=== PATIENT | male | born 1990 | race Caucasian/White ===

== ENCOUNTER 2021-05-12 17:33 | Emergency (ER) | payer MEDICAID, OTHER ==
[~2021-05-12] VITALS: Ht 175.3 cm; Wt 7.7 kg
--- NOTE | 2021-05-12 18:47 | NUR ---
NILDA ([facility] [place]) [phone]. CALL HER IF WE HAVE ANY QUESTIONS.
[2021-05-12] MEDS ORDERED: LORA-269 PO (21:37)
[2021-05-12] MEDS ORDERED: LORazepam 1 MG tablet PO ONE (22:05)
[2021-05-12 22:13] VITALS: BP 130/94
[2021-05-13] MEDS ORDERED: ESCI20TA17 PO (00:12)
== END 2021-05-12 22:15 | disposition home or self-care (01) ==
LOC: ER 17:41
DX: F10.230 Alcohol dependence with withdrawal, uncomplicated (principal); F22 Delusional disorders; J45.909 Unspecified asthma, uncomplicated; F41.9 Anxiety disorder, unspecified; F32.9 Major depressive disorder, single episode, unspecified; F12.90 Cannabis use, unspecified, uncomplicated; Z72.89 Other problems related to lifestyle; Z88.1 Allergy status to other antibiotic agents; Z79.899 Other long term (current) drug therapy; Y90.9 Presence of alcohol in blood, level not specified
CPT/HCPCS: 99283

== ENCOUNTER 2021-05-12 23:06 | Emergency (ER) | payer MEDICAID ==
[~2021-05-12] VITALS: Ht 175.3 cm; Wt 77.3 kg
[~2021-05-12 23:06] MED LIST: LORA-269 PO
--- NOTE | 2021-05-12 23:36 | NUR ---
pt escorted back to bed 26 and changed into green scrubs. pt is agreeable to being here overnight
--- NOTE | 2021-05-13 | NUR ---
The patient is a 30 year old male who was brought to the ER by his family. He was seen in the ER one hour ago and was given referrals for treatment. While driving home with his family he demanded that his family pull the car over and he jumped out and then walked to the nearest market and bought ETOH. He stated that he had done that impulsively and had extremely high anxiety. The patient stated that he is not having suicidal thoughts but then added, "I don't want to live like this" He reports that he has a long hx of ETOH abuse and depression and anxiety. He stated that he typically drinks 24 beers per day or more for the past 8 years. He moved to [facility] several weeks ago from out of [place] and is staying with his parents and is employed at [employer]. He reports he has had at least one previous suicide attempt and approximately 4 psychiatric hospitalizations while living in [place]. He also reports having 3-4 stays in rehabs. He denies hx of DUIs. He reports A/V hallucinations. He reports feeling paranoid. He stated that his anxiety is very high. He described his concentration as "scattered" His affect is flat. His speech is monotone, soft. He reports hx of etoh withdrawals and described seizure like symptoms. States prior dx include ETOH, MDD, and Anxiety. He parents are supportive.
[2021-05-13] MEDS ORDERED: ESCI20TA17 PO (00:12)
--- NOTE | 2021-05-13 00:18 | NUR ---
Attempted to home medications list from the last medications the patient was on which was over one month ago. The list the of medications and doses did not make sense. Discussed with PA to hold off on completing the med list until tomorrow when he might be clearer or his mother able to assist.
[2021-05-13 00:56] LABS: BASOPHILS # (AUTO) 0.1 X10'3 (0-0.2); BASOPHILS % (AUTO) 1.6 % (0-1); HEMATOCRIT 42.8 % (42.0-52.0); HEMOGLOBIN 14.9 g/dl (14.0-17.9); LYMPHOCYTES # (AUTO) 1.6 X10'3 (1.1-4.8); LYMPHOCYTES % (AUTO) 33.1 % (21-51); MEAN CORPUSCULAR HEMOGLOBIN 32.4 PG (27.0-31.0); MEAN CORPUSCULAR HGB CONC 34.9 g/dL (33.0-36.5); MEAN CORPUSCULAR VOLUME 92.9 FL (78-98); MEAN PLATELET VOLUME 7.5 FL (7.4-10.4); MONOCYTES # (AUTO) 0.7 X10'3 (0-0.9); NEUTROPHILS # (AUTO) 2.4 X10'3 (1.8-7.7); NEUTROPHILS % (AUTO) 49.3 % (42-75); PLATELET COUNT 187 X10'3 (140-440); RED CELL DISTRIBUTION WIDTH 13.5 % (11.5-14.5); WHITE BLOOD COUNT 4.8 X10'3 (4.5-11.0)
[2021-05-13 00:58] LABS: ALANINE AMINOTRANSFERASE 22 U/L (12-78); ALBUMIN 3.8 G/DL (3.4-5.0); ALBUMIN/GLOBULIN RATIO 1.4 (1.1-1.5); ALKALINE PHOSPHATASE 70 IU/L (46-116); ANION GAP 12 (8-16); ASPARTATE AMINO TRANSFERASE 28 U/L (10-37); BILIRUBIN,TOTAL 0.6 MG/DL (0.1-1.0); BLOOD UREA NITROGEN 8 MG/DL (7-18); BUN/CREATININE RATIO 10.5 (5.4-32.0); CALCIUM 8.1 MG/DL (8.5-10.1); CHLORIDE 104 MMOL/L (99-107); CREATININE 0.76 MG/DL (0.60-1.10); GLUCOSE 91 MG/DL (70-104); POTASSIUM 3.7 MMOL/L (3.5-5.1); SODIUM 141 MMOL/L (135-145); TOTAL CARBON DIOXIDE 25.4 MMOL/L (24-32); TOTAL PROTEIN 6.6 G/DL (6.4-8.2); eGFR > 90 ML/MIN
[2021-05-13 01:00] LABS: URINE AMPHETAMINE SCREEN NEGATIVE (Neg); URINE BARBITUATE SCREEN NEGATIVE (Neg); URINE BENZODIAZEPINES SCREEN POSITIVE (Neg); URINE CANNABINOID SCREEN NEGATIVE (Neg); URINE COCAINE SCREEN POSITIVE (Neg); URINE METHADONE SCREEN NEGATIVE (Neg); URINE OPIATE SCREEN NEGATIVE (Neg); URINE PHENCYCLIDINE SCREEN NEGATIVE (Neg)
[2021-05-13 01:09] LABS: ETHANOL 0.137 GM/DL (0.0-0.010)
--- NOTE | 2021-05-13 02:08 | NUR ---
PACKET FAXED TO [facility]
--- NOTE | 2021-05-13 03:59 | NUR ---
The patient appears to be asleep
--- NOTE | 2021-05-13 04:59 | NUR ---
The patient appears to be sleeping
[2021-05-13 05:41] VITALS: BP 106/70
[2021-05-13 12:47] LABS: CLARITY,URINE SLIGHTLY CLOUDY (Clear); COLOR,URINE YELLOW (Yellow); GLUCOSE, URINE NEGATIVE (Neg); KETONES,URINE NEGATIVE (Neg); LEUKOCYTE ESTERASE ,URINE NEGATIVE (Neg); NITRITES, URINE NEGATIVE (Neg); OCCULT BLOOD,URINE NEGATIVE (Neg); PH,URINE 5.5 (4.8-8.0); PROTEIN,URINE NEGATIVE (Neg); UROBILINOGEN,URINE 0.2 E.U/dL (0.2-1.0)
[2021-05-13] MEDS ORDERED: chlordiazePOXIDE 25mg capsule PO ONE (12:50)
[2021-05-13 12:56] LABS: UA COLLECTION TYPE NON-SPECIFIED
[2021-05-13 13:08] LABS: BACTERIA,URINE NONE SEEN /HPF (Neg); RBC,URINE 0-2 /HPF (0-2); WBC,URINE NONE SEEN /HPF (0-4)
[2021-05-13 13:09] LABS: MUCUS STRANDS FEW /LPF (Neg); SQUAMOUS EPITHELIAL CELL,UR FEW /LPF (FEW)
[2021-05-13 13:10] LABS: CAL OXALATE CRYSTALS 3+ /HPF (NEGATIVE); SPERM FEW /HPF (NEGATIVE)
--- NOTE | 2021-05-13 14:30 | NUR ---
Patients mom called concerned that patient is being discharged without a perscription for ativan or something to get him through until he can go to [facility] and get medications. Transferred mother of patient to [facility] worker who she wished to speak to about the future plan of care.
== END 2021-05-13 17:59 | disposition home or self-care (01) ==
LOC: ER 23:08
DX: R45.851 Suicidal ideations (principal); Z20.822 Contact with and (suspected) exposure to COVID-19; R45.850 Homicidal ideations; J45.909 Unspecified asthma, uncomplicated; F12.90 Cannabis use, unspecified, uncomplicated; Z72.89 Other problems related to lifestyle; Z88.1 Allergy status to other antibiotic agents; Z79.899 Other long term (current) drug therapy
CPT/HCPCS: 36415; 80053; 80305; 80320; 81001; 84443; 85025; 87426; 99285

== ENCOUNTER 2021-07-20 05:07 | Emergency (ER) | payer MEDICAID ==
[~2021-07-20] VITALS: Ht 175.3 cm; Wt 78.6 kg
--- NOTE | 2021-07-20 06:04 | NUR ---
patient states that he got out of rehab 8 days ago for etoh, relapsed yesterday and has been drinking heavily ever since ( his gf broke up with him).
[2021-07-20 06:25] LABS: URINE AMPHETAMINE SCREEN NEGATIVE (Neg); URINE BARBITUATE SCREEN NEGATIVE (Neg); URINE BENZODIAZEPINES SCREEN POSITIVE (Neg); URINE CANNABINOID SCREEN NEGATIVE (Neg); URINE COCAINE SCREEN NEGATIVE (Neg); URINE METHADONE SCREEN NEGATIVE (Neg); URINE OPIATE SCREEN NEGATIVE (Neg); URINE PHENCYCLIDINE SCREEN NEGATIVE (Neg)
[2021-07-20 06:26] LABS: UA COLLECTION TYPE CLN CATCH MIDSTREAM
[2021-07-20 06:28] LABS: CLARITY,URINE CLEAR (Clear); COLOR,URINE YELLOW (Yellow); GLUCOSE, URINE NEGATIVE (Neg); KETONES,URINE NEGATIVE (Neg); LEUKOCYTE ESTERASE ,URINE NEGATIVE (Neg); NITRITES, URINE NEGATIVE (Neg); OCCULT BLOOD,URINE NEGATIVE (Neg); PROTEIN,URINE NEGATIVE (Neg); UROBILINOGEN,URINE 0.2 E.U/dL (0.2-1.0)
[2021-07-20 06:32] LABS: BASOPHILS # (AUTO) 0.1 X10'3 (0-0.2); BASOPHILS % (AUTO) 1.3 % (0-1); EOSINOPHILS # (AUTO) 0.1 X10'3 (0-0.9); EOSINOPHILS % (AUTO) 1.8 % (0-6); HEMATOCRIT 46.6 % (42.0-52.0); HEMOGLOBIN 15.9 g/dl (14.0-17.9); LYMPHOCYTES # (AUTO) 2.5 X10'3 (1.1-4.8); LYMPHOCYTES % (AUTO) 41.5 % (21-51); MEAN CORPUSCULAR HEMOGLOBIN 32.4 PG (27.0-31.0); MEAN CORPUSCULAR HGB CONC 34.2 g/dL (33.0-36.5); MEAN CORPUSCULAR VOLUME 94.8 FL (78-98); MEAN PLATELET VOLUME 8.5 FL (7.4-10.4); MONOCYTES # (AUTO) 0.9 X10'3 (0-0.9); MONOCYTES % (AUTO) 15.6 % (2-12); NEUTROPHILS # (AUTO) 2.4 X10'3 (1.8-7.7); NEUTROPHILS % (AUTO) 39.8 % (42-75); PLATELET COUNT 263 X10'3 (140-440); RED BLOOD COUNT 4.92 X10'6 (4.70-6.10); RED CELL DISTRIBUTION WIDTH 13.1 % (11.5-14.5)
[2021-07-20 06:34] LABS: ALANINE AMINOTRANSFERASE 46 U/L (12-78); ALBUMIN 4.4 G/DL (3.4-5.0); ALBUMIN/GLOBULIN RATIO 1.4 (1.1-1.5); ALKALINE PHOSPHATASE 82 IU/L (46-116); ANION GAP 8 (8-16); ASPARTATE AMINO TRANSFERASE 36 U/L (10-37); BILIRUBIN,TOTAL 0.2 MG/DL (0.1-1.0); BLOOD UREA NITROGEN 5 MG/DL (7-18); BUN/CREATININE RATIO 5.1 (5.4-32.0); CALCIUM 8.3 MG/DL (8.5-10.1); CHLORIDE 112 MMOL/L (99-107); CREATININE 0.98 MG/DL (0.60-1.10); ETHANOL 0.281 GM/DL (0.0-0.010); GLUCOSE 98 MG/DL (70-104); POTASSIUM 3.7 MMOL/L (3.5-5.1); SODIUM 149 MMOL/L (135-145); TOTAL CARBON DIOXIDE 29.4 MMOL/L (24-32); TOTAL PROTEIN 7.6 G/DL (6.4-8.2); eGFR 89 ML/MIN
[2021-07-20] MEDS ORDERED: OLAN5TAB5 PO (08:33)
[2021-07-20] MEDS ORDERED: ESCI5TAB PO (08:33)
[2021-07-20] MEDS ORDERED: ACAM333T8 PO (08:33)
[2021-07-20] MEDS ORDERED: QUET-1 PO (08:33)
[2021-07-20] MEDS ORDERED: OLANZapine 5mg rapidly disint. tablet PO PRN (08:45)
[2021-07-20] MEDS: ESCITALOPRAM OXALATE 5 MG TABLET PO SCH (09:13)
[2021-07-20 10:17] LABS: TOTAL CELLS COUNTED 100
[2021-07-20 10:24] LABS: PLATELET ESTIMATE NORMAL
--- NOTE | 2021-07-20 10:52 | NUR ---
Patient sleeping on left side. No distress observed. Continue to monitor.
--- NOTE | 2021-07-20 12:35 | NUR ---
Patient continues to sleep. No distress observed. Continue to monitor.
[2021-07-20] MEDS ORDERED: acamprosate DR 333mg Tablet PO SCH (13:00)
--- NOTE | 2021-07-20 13:15 | NUR ---
Patient did not want to wake up for lunch. No distress observed. Continue to monitor.
--- NOTE | 2021-07-20 14:45 | NUR ---
Patient speaking to ZHANNA Martinez. Continue to monitor.
--- NOTE | 2021-07-20 16:10 | NUR ---
Patient sleeping supine. No distress observed. Continue to monitor.
--- NOTE | 2021-07-20 19:20 | NUR ---
Pt is laying in bed asleep rr even and unlabored.
--- NOTE | 2021-07-20 20:33 | NUR ---
Pt laying in bed awake. Pt is med compliant, c/o anxiety prn zyprexa provided.
[2021-07-20] MEDS ORDERED: LORazepam 1 MG tablet PO ONE (20:45)
[2021-07-20] MEDS ORDERED: quetiapine 100mg tablet PO SCH (21:00)
--- NOTE | 2021-07-20 21:05 | NUR ---
pt continues to c/o anxiety, prn ativan provided
--- NOTE | 2021-07-20 21:47 | NUR ---
Pt is laying on his right side, asleep. Appears to be resting confortably RR 14
--- NOTE | 2021-07-21 01:30 | NUR ---
Pt is asleep, snoring. Appears to be resting comfortably
--- NOTE | 2021-07-21 04:59 | NUR ---
Pt is laying on his back sleeping. RR even and unlabored.
--- NOTE | 2021-07-21 06:30 | NUR ---
Received Pt in bed sleeping w/o distress.
[2021-07-21] MEDS: ESCITALOPRAM OXALATE 5 MG TABLET PO SCH (08:56)
--- NOTE | 2021-07-21 09:00 | NUR ---
Pt woke, ate breakfast and took AM med w/o issue. He returned to sleep.
--- NOTE | 2021-07-21 11:00 | NUR ---
Pt talking with [facility] clinician at this time. He remains in bed, calm and cooperative. Pt using phone to facilitate transition to [facility].
--- NOTE | 2021-07-21 14:00 | NUR ---
Pt ate lunch. Pt makes no requests of staff and has been sleeping a lot.
--- NOTE | 2021-07-21 16:45 | NUR ---
Talked with Pt about making arrangements to go home. Pt called parents who will be picking him up.
--- NOTE | 2021-07-21 18:19 | NUR ---
Assumed care of pt. Pt is sitting up in bed eating dinner.
[2021-07-21] MEDS ORDERED: LORazepam 1 MG tablet PO ONE (20:30)
[2021-07-21 20:36] VITALS: BP 119/74
--- NOTE | 2021-07-21 20:39 | NUR ---
Pt denies s/i, left with his parents, states his plan is to f/u with [facility].
== END 2021-07-21 20:39 ==
LOC: ER 05:08
DX: R45.851 Suicidal ideations (principal); F10.239 Alcohol dependence with withdrawal, unspecified; J45.909 Unspecified asthma, uncomplicated; F41.9 Anxiety disorder, unspecified; F32.9 Major depressive disorder, single episode, unspecified; F12.90 Cannabis use, unspecified, uncomplicated; Z59.0 Homelessness; Z72.89 Other problems related to lifestyle; Z88.0 Allergy status to penicillin; Z79.899 Other long term (current) drug therapy; Y90.8 Blood alcohol level of 240 mg/100 ml or more
CPT/HCPCS: 80053; 80305; 80320; 81003; 85007; 85025; 99285

== ENCOUNTER 2021-08-26 20:20 | Emergency (ER) | payer MEDICAID ==
[~2021-08-26] VITALS: Ht 175.3 cm; Wt 79.5 kg
[~2021-08-26 20:20] MED LIST changes: +ACAM333T8 PO; +ESCI5TAB PO; -LORA-269 PO; +OLAN5TAB5 PO; +QUET-1 PO
[2021-08-26] MEDS ORDERED: normal saline 1000ml 1,000 ML IV ONE ×2 (22:20)
[2021-08-26] MEDS ORDERED: GABA300C PO (23:31)
[2021-08-27 00:29] VITALS: BP 109/55
== END 2021-08-27 00:10 | disposition home or self-care (01) ==
LOC: ER 20:21
DX: F10.229 Alcohol dependence with intoxication, unspecified (principal); J45.909 Unspecified asthma, uncomplicated; F41.9 Anxiety disorder, unspecified; F32.9 Major depressive disorder, single episode, unspecified; F12.90 Cannabis use, unspecified, uncomplicated; Z72.89 Other problems related to lifestyle; Z88.1 Allergy status to other antibiotic agents; Z79.899 Other long term (current) drug therapy; Y90.9 Presence of alcohol in blood, level not specified
CPT/HCPCS: 99283; J7030

== ENCOUNTER 2021-08-30 12:18 | Inpatient (IN) | payer MEDICAID ==
[~2021-08-30] VITALS: Ht 175.3 cm; Wt 78.2 kg
[~2021-08-30 12:18] MED LIST changes: +GABA300C PO
[2021-08-30] MEDS ORDERED: magnesium hydroxide 30ml (MOM) UD suspension PO PRN (14:50)
[2021-08-30] MEDS ORDERED: acetaminophen 325mg tablet PO PRN ×2 (14:50)
[2021-08-30] MEDS ORDERED: mag hydrox/Alum hydrox/simeth 30ml oral suspension PO PRN (14:50)
[2021-08-30] MEDS ORDERED: loperamide 2mg capsule PO PRN (14:50)
[2021-08-30] MEDS ORDERED: traZODone 50mg tablet PO PRN (14:50)
[2021-08-30] MEDS ORDERED: NICOTINE POLACRILEX 2 MG LOZENGE BC PRN (14:50)
[2021-08-30] MEDS ORDERED: QUET100T34 PO (15:06)
[2021-08-30] MEDS: LORazepam 1 MG tablet PO PRN ×2 (15:08→21:13)
[2021-08-30] MEDS: nicotine 14mg patch - 24hr TD SCH (15:10)
[2021-08-30] MEDS ORDERED: GABA300C PO (15:12)
[2021-08-30 15:13] VITALS: BP 149/97
--- NOTE | 2021-08-30 15:16 | NUR ---
Admission note: Pt admitted today on a 5150 for DTS from [facility] at 1425 ambulatory. Pt reported wanting to walk into traffic. PT reports he drinks 2 liters of ETOH usually Vodka per day. Pt reports he has suicidal ideation frequently and auditory hallucinations of music and humming. Pt has been off of his medications for 2-3 weeks. Pt lives with his parents but does not want to go home due to chaos and bickering. Pt cooperative with admit. No skin issues and clothing washed.
[2021-08-30] MEDS ORDERED: gabapentin 300mg capsule PO PRN (15:30)
[2021-08-30] MEDS ORDERED: OLANZapine 5mg rapidly disint. tablet PO PRN (15:30)
[2021-08-30] MEDS ORDERED: folic acid 1mg tablet PO ONE (18:30)
[2021-08-30] MEDS ORDERED: thiamine 100mg tablet PO ONE (18:30)
[2021-08-30] MEDS ORDERED: LORazepam 1 MG tablet PO ONE (19:55)
[2021-08-30 20:00] VITALS: BP 140/89
[2021-08-30] MEDS: gabapentin 300mg capsule PO SCH (20:07)
[2021-08-30] MEDS: quetiapine 100mg tablet PO SCH (20:07)
--- NOTE | 2021-08-31 03:31 | NUR ---
NURSING PROGRESS NOTE: Legal hold: 5150 Involuntary hold for DTS Report received from ISAI Berg with use of SBAR. Why are they here: Pt admitted today on a 5150 for DTS from [facility] at 1425 ambulatory. Pt reported wanting to walk into traffic. PT reports he drinks 2 liters of ETOH usually Vodka per day. Pt reports he has suicidal ideation frequently and auditory hallucinations of music and humming. Pt has been off of his medications for 2-3 weeks. Pt lives with his parents but does not want to go home due to chaos and bickering. Pt cooperative with admit. No skin issues and clothing washed. Assessment What has happened this shift: pt was in his room at change of shift. Continues to report s/i, states if he leaves here would walk in traffic. Pt reports not feeling well and scored 9 on ciwa protocol. P/C to provider and administered Ativan 2mg. Pt took HS meds and continued to report not feeling well. CIWA increased to 11 and pt was given addtl dose of Ativan 1mg. Pt reports feeling better and vitals stable prior to going to sleep. Pt spent evening coloring and socializing w/female peer in group room prior to snack and going to bed. S/I, H/I: Pt reports s/i w/plan to walk in traffic A/VH: Denies Sleep: Refer to sleep assessment ADL's: Independent Group attendance: NA Were meds taken: Yes Any med S/E: None observed or reported Mental Status Exam Appearance: Neat, clean and dressed in green unit attire Eye contact: good Behavior: somewhat isolative to his room, calls his mother and socializes w/female peer prior to going to bed Speech: soft spoken, normal rate Mood: depressed Affect: Blunted Thought process: linear Thought Content: pt is not feeling well c/o feeling sick. Pt provided prn ativan Cognition: a/ox4 Insight: Poor Judgment: Poor Interventions PRN's used: None Therapeutic interventions: Provided 1:1 assessment with therapeutic communication, medication administration/education/monitoring, encouraged pt to get up for meals, therapeutic listening, encouraged pt to participate in unit activities, Q15 minute safety checks. Restraints/seclusion/emergency medication: N/A Justification: Patient is conserved and waiting placement when stable. Pt continues to require medication adjustment and stabilization in a safe and therapeutic milieu.
[2021-08-31] MEDS ORDERED: ESCITALOPRAM OXALATE 5 MG TABLET PO SCH (08:00)
[2021-08-31] MEDS ORDERED: gabapentin 300mg capsule PO SCH (08:00)
[2021-08-31 08:18] VITALS: BP 102/60
[2021-08-31] MEDS: gabapentin 300mg capsule PO SCH ×3 (08:20→20:29)
[2021-08-31] MEDS: thiamine 100mg tablet PO SCH ×2 (08:20→20:29)
[2021-08-31] MEDS: folic acid 1mg tablet PO SCH (08:20)
[2021-08-31] MEDS: ESCITALOPRAM OXALATE 5 MG TABLET PO SCH (08:21)
[2021-08-31] MEDS: multivitamins, therapeutics tablet PO SCH (08:21)
[2021-08-31] MEDS: nicotine 14mg patch - 24hr TD SCH (08:22)
[2021-08-31 08:40] LABS: ALANINE AMINOTRANSFERASE 166 U/L (12-78); ALBUMIN 3.7 G/DL (3.4-5.0); ALBUMIN/GLOBULIN RATIO 1.1 (1.1-1.5); ALKALINE PHOSPHATASE 87 IU/L (46-116); ANION GAP 9 (8-16); ASPARTATE AMINO TRANSFERASE 179 U/L (10-37); BILIRUBIN,TOTAL 0.9 MG/DL (0.1-1.0); BLOOD UREA NITROGEN 11 MG/DL (7-18); BUN/CREATININE RATIO 13.8 (5.4-32.0); CALCIUM 9.4 MG/DL (8.5-10.1); CHLORIDE 107 MMOL/L (99-107); GLUCOSE 93 MG/DL (70-104); POTASSIUM 4.1 MMOL/L (3.5-5.1); SODIUM 144 MMOL/L (135-145); TOTAL CARBON DIOXIDE 28.2 MMOL/L (24-32); TOTAL PROTEIN 7.1 G/DL (6.4-8.2); eGFR > 90 ML/MIN
[2021-08-31 08:47] LABS: BASOPHILS % (AUTO) 0.6 % (0-1); EOSINOPHILS # (AUTO) 0.1 X10'3 (0-0.9); EOSINOPHILS % (AUTO) 1.9 % (0-6); HEMATOCRIT 46.8 % (42.0-52.0); HEMOGLOBIN 16.3 g/dl (14.0-17.9); LYMPHOCYTES # (AUTO) 1.3 X10'3 (1.1-4.8); LYMPHOCYTES % (AUTO) 27.1 % (21-51); MEAN CORPUSCULAR HEMOGLOBIN 33.4 PG (27.0-31.0); MEAN CORPUSCULAR HGB CONC 34.8 g/dL (33.0-36.5); MEAN CORPUSCULAR VOLUME 96.2 FL (78-98); MEAN PLATELET VOLUME 8.5 FL (7.4-10.4); MONOCYTES # (AUTO) 0.6 X10'3 (0-0.9); NEUTROPHILS # (AUTO) 2.8 X10'3 (1.8-7.7); NEUTROPHILS % (AUTO) 57.4 % (42-75); PLATELET COUNT 126 X10'3 (140-440); RED BLOOD COUNT 4.87 X10'6 (4.70-6.10); WHITE BLOOD COUNT 4.8 X10'3 (4.5-11.0)
[2021-08-31 08:50] LABS: CHOL/HDL RATIO 2.2 (0.00-4.99); CHOLESTEROL 216 MG/DL (0-200); HDL CHOLESTEROL 98 MG/DL (35-60); LDL CHOLESTEROL 90 MG/DL (50-100); TRIGLYCERIDES 105 MG/DL (20-135)
[2021-08-31 09:24] LABS: HEMOGLOBIN A1C 4.5 % (4.5-6.2)
[2021-08-31 10:05] VITALS: BP 138/80
[2021-08-31] MEDS: LORazepam 1 MG tablet PO PRN ×3 (10:13→20:30)
[2021-08-31 14:00] VITALS: BP 143/89
--- NOTE | 2021-08-31 16:24 | NUR ---
NURSING PROGRESS NOTE: LISETH Legal hold: 5150 Expires 09/02 @ 1425. Involuntary hold for DTS Report received from ISAI Berg with use of SBAR. Why are they here: Pt admitted today on a 5150 for DTS from [facility] at 1425 ambulatory. Pt reported wanting to walk into traffic. PT reports he drinks 2 liters of ETOH usually Vodka per day. Pt reports he has suicidal ideation frequently and auditory hallucinations of music and humming. Pt has been off of his medications for 2-3 weeks. Pt lives with his parents but does not want to go home due to chaos and bickering. Pt has a history of depression and ETOH dependency. Assessment What has happened this shift: Received report from ISAI Berg. Pt was in the community room eating breakfast. Pt was compliant with care and medications. Pt stayed in community room most of the morning coloring, sitting quietly with peers. Pt is quiet and soft spoken. Pt presents with anhedonia reports feeling down and depressed. Affect congruent. Pt denies suicidal/homicidal thoughts. Pt states he feels safe here. Pt attended both AM and PM group. 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 Pt states drawing/coloring reduces his stress level. Pt continues on CIWA protocol required a total of 2mg of Ativan as this writing. Pt eating 100% of meals. S/I, H/I: Pt denies both. Endorses depression. A/VH: Pt denies both. Sleep: 5.75 hours per sleep assessment. No naps. ADL's: Independent Group attendance: Yes, AM/PM Were meds taken: Yes, without hesitation. Any med S/E: None observed or reported Mental Status Exam Appearance: Neat, clean. Dressed in green unit scrubs. Eye contact: Good Behavior: Cooperative, reserved, visible on unit. Guarded. In community room all day coloring, groups, meals. Speech: Clear, soft spoken, some latency. Mood: Depressed Affect: Congruent to mood. Thought process: Linear Thought Content: Not feeling a whole lot. Cognition: A&Ox4 Insight: Poor Judgment: Fair Interventions PRN's used: Ativan Therapeutic interventions: Maintained safe and therapeutic environment, medication administration/education/monitoring, encouraged pt to get up for meals, therapeutic listening, encouraged pt to participate in unit activities, CIWA protocol; Q15 minute safety checks. Restraints/seclusion/emergency medication: N/A Justification: Patient requires an interruption of his current depressive episode. Pt requires medication initiation and adjustment in a safe therapeutic milieu. Addendum: 08/31/21 at 1719 by Linsey Nuñez RN Pt's1400 CIWA was 9. Admin 1mg Ativan per protocol. CIWA performed again at 1640. Admin another 1mg dose Ativan. PRN Ativan was changed to q4h per Dr. Salazar to coincide with CIWA assessment.
[2021-08-31 16:44] VITALS: BP 141/98
[2021-08-31] MEDS ORDERED: LORazepam 1 MG tablet PO ONE (17:00)
[2021-08-31 19:48] VITALS: BP 138/88
[2021-08-31] MEDS: quetiapine 100mg tablet PO SCH (20:30)
--- NOTE | 2021-08-31 21:01 | NUR ---
Removed pts nicotine patch
--- NOTE | 2021-08-31 21:59 | NUR ---
NURSING PROGRESS NOTE: LISETH Legal hold: 5150 Expires 09/02 @ 1425. Involuntary hold for DTS Report received from ISAI Berg with use of SBAR. Why are they here: Pt admitted today on a 5150 for DTS from [facility] at 1425 ambulatory. Pt reported wanting to walk into traffic. PT reports he drinks 2 liters of ETOH usually Vodka per day. Pt reports he has suicidal ideation frequently and auditory hallucinations of music and humming. Pt has been off of his medications for 2-3 weeks. Pt lives with his parents but does not want to go home due to chaos and bickering. Pt has a history of depression and ETOH dependency. Assessment What has happened this shift: Pt was in group room socializing with peers. Pt remained in group room socializing, playing cards and working on art projects. Pt continues to report depression and anxiety. Denies s/i. Pt reports he didnt sleep well last night. PRN trazodone provided tonight. Pt c/o constipation but declines any prns offered and states he wants to wait until tomorrow to try anything, also declines prune juice. Pt c/o sciatica at and was given prn tylenol. S/I, H/I: Pt denies both. A/VH: Pt denies both. Sleep:see sleep hours ADL's: Independent Group attendance: no evening groups Were meds taken: Yes, without hesitation. Any med S/E: None observed or reported Mental Status Exam Appearance: Neat, clean. Dressed in green unit scrubs. Eye contact: Good Behavior: Cooperative, reserved, visible on unit. Guarded. Speech: Clear, soft spoken, some latency. Mood: Depressed Affect: Constricted Thought process: Linear Thought Content: c/o pain and asking about interactions of medications Cognition: A&Ox4 Insight: Poor Judgment: Fair Interventions PRN's used: Ativan, tylenol, trazodone Therapeutic interventions: Maintained safe and therapeutic environment, medication administration/education/monitoring, encouraged pt to get up for meals, therapeutic listening, encouraged pt to participate in unit activities, CIWA protocol; Q15 minute safety checks. Restraints/seclusion/emergency medication: N/A
[2021-09-01 07:54] VITALS: BP 117/69
[2021-09-01] MEDS: nicotine 14mg patch - 24hr TD SCH (08:07)
[2021-09-01] MEDS: gabapentin 300mg capsule PO SCH ×3 (08:10→19:49)
[2021-09-01] MEDS: multivitamins, therapeutics tablet PO SCH (08:10)
[2021-09-01] MEDS: folic acid 1mg tablet PO SCH (08:10)
[2021-09-01] MEDS: ESCITALOPRAM OXALATE 5 MG TABLET PO SCH (08:10)
[2021-09-01] MEDS: thiamine 100mg tablet PO SCH ×2 (08:10→19:49)
[2021-09-01] MEDS: LORazepam 1 MG tablet PO PRN ×2 (08:36→12:18)
--- NOTE | 2021-09-01 09:40 | NUR ---
Pt. attended group today. We talked about how to recognize when you are in a Co-dependent relationship. The Pts. did a Checklist about what symptoms of codependency they may have. We discussed seven ways to avoid codependency. Pt. was new to the group today, he was quiet but did jump into the conversation when asked. He shared where he feels that he struggles when it comes to codependency. He reported he struggles to say no and he tends to take on the responsibility for others in relationships. Pt. was alert and oriented X 4. His thought content and thought process was WNL. His demeanor was calm and compliant. He was open to others in the group and to sharing his thoughts thought he did need a bit of prompting to start to share. CLEMENTE WebbW
--- NOTE | 2021-09-01 11:14 | NUR ---
We talked about Boundaries, the different kinds and how to communicate our boundaries to others. Each pt. did a written activity to help them identify a person/situation they struggle to set boundaries in. Pt sat quietly in the group today and listened to this Relay Telegrapher and his peers. He shared minimally and declined to share whatever thoughts he was having today with the group. His demeanor was calm and pleasant. Half way through the group he left to go speak with his doctor. Jocelyn Pollack LCSW
--- NOTE | 2021-09-01 17:27 | NUR ---
NURSING PROGRESS NOTE: Efren Leo Legal hold: 5150. Involuntary hold for DTS Report received from IVY Clemons with use of SBAR. Why are they here: Pt admitted on a 5150 for DTS from [facility]. Pt reported wanting to walk into traffic. PT reports he drinks 2 liters of ETOH usually Vodka per day. Pt reports he has suicidal ideation frequently and auditory hallucinations of music and humming. Pt has been off of his medications for 2-3 weeks. Pt lives with his parents but does not want to go home due to chaos and bickering. Pt has a history of depression and ETOH dependency. Assessment What has happened this shift: Received pt. sleeping in his room. Awoke to receive his medications, 1:1 assessment completed pt denies current SI,HI, but reports I feel depressed, I reminded pt. he would see his provider today. CIWA completed with score of 8, PRN Ativan admin. per protocol. Pt. ate breakfast with cohorts in main dining room. Later pt. did attend group, CIWA continued and his score was 8; PRN Ativan given per protocol. Pt. spent part of afternoon in his room both napping and awake. Pt. presents with flat affect and guarded. Later in the afternoon pt. participated in group and was observed drawing. Pt completed CIWA protocols at 1600 required a total of 2mg of Ativan this shift. SI, H/I: Denies, but he does endorse I feel depressed A/VH: Denies both. Sleep: 6.5 hours per NOC. No naps. ADL's: Independent Group attendance: Yes Were meds taken: Yes. Any med S/E: None observed or reported Mental Status Exam Appearance: Clean, dressed in green unit scrubs. Eye contact: Good Behavior: Cooperative, guarded. Speech: Clear, soft tone. Mood: Depressed Affect: Congruent to mood. Thought process: Linear Thought Content: Not feeling great. Cognition: A&Ox4 Insight: Poor Judgment: Fair Interventions PRN's used: Ativan Therapeutic interventions: Maintained safe and therapeutic environment, medication administration/education/monitoring, encouraged pt to get up for meals, therapeutic listening, and encouraged pt to participate in unit activities, CIWA protocol; Q15 minute safety checks. Restraints/seclusion/emergency medication: N/A Justification: Patient requires an interruption of his current depressive episode. Pt requires medication initiation and adjustment in a safe therapeutic milieu.
[2021-09-01 19:00] VITALS: BP 135/89
[2021-09-01] MEDS: LORazepam 1 MG tablet PO SCH (19:50)
[2021-09-01] MEDS: quetiapine 100mg tablet PO SCH (19:50)
--- NOTE | 2021-09-02 01:59 | NUR ---
NURSING PROGRESS NOTE: Legal hold: 5150. Involuntary hold for DTS Report received from Otis Brady RN with use of SBAR. Why are they here: Pt admitted on a 5150 for DTS from [facility]. Pt reported wanting to walk into traffic. PT reports he drinks 2 liters of ETOH usually Vodka per day. Pt reports he has suicidal ideation frequently and auditory hallucinations of music and humming. Pt has been off of his medications for 2-3 weeks. Pt lives with his parents but does not want to go home due to chaos and bickering. Pt has a history of depression and ETOH dependency. Assessment What has happened this shift: Patient is observed socializing with others in the community room following shift change. Patient is well oriented and cooperative. Patient tells this teletypewriter operator he is an alcoholic, he drinks a pint of vodka daily. Last alcohol was about three days ago. A CTWA assessment is being done this shift. The patient admits to depression, he denies S/I, H/I, or any hallucinations. The patient allowed a female patient to kb on his face with a color marker. The patient was medication compliant. He states he slept well the previous night and feels Seroquel is beneficial for his condition. Patient does not demonstrate any tremors or withdrawal symptoms. Patient states he enjoyed speaking to his mother on the phone tonight. Patient states his family and future are on his mind. SI, H/I: Denies. A/VH: Denies. Sleep: Will tally at 0500 hours.. ADL's: Independent. Group attendance: No group on nights. Were meds taken: Yes. Any med S/E: None observed or reported. Mental Status Exam Appearance: Clean, dressed in unit attire. Eye contact: Good. Behavior: Cooperative, mild anxiety. Speech: Clear, soft tone. Mood: Depressed, cooperative. Affect: Congruent to mood. Thought process: Linear. Thought Content: Thinking about his future, family, etc. Cognition: A&Ox4. Insight: Poor. Judgment: Fair. Interventions PRN's used: None. Therapeutic interventions: Maintained safe and therapeutic environment, medication administration/education/monitoring, encouraged pt to get up for meals, therapeutic listening, and encouraged pt to participate in unit activities, CIWA protocol; Q15 minute safety checks. Restraints/seclusion/emergency medication: N/A Justification: Patient requires an interruption of his current depressive episode. Pt requires medication initiation and adjustment in a safe therapeutic milieu.
--- NOTE | 2021-09-02 04:00 | NUR ---
Patient is sleeping quietly. W/D, good color. No signs of respiratory distress. Last CIWA score was at 0000 hours, it was a zero. Patient was left to sleep instead of awakening him.
[2021-09-02 08:00] VITALS: BP 122/76
[2021-09-02] MEDS: LORazepam 1 MG tablet PO SCH ×4 (08:59→20:03)
[2021-09-02] MEDS: multivitamins, therapeutics tablet PO SCH (08:59)
[2021-09-02] MEDS: gabapentin 300mg capsule PO SCH ×3 (08:59→20:03)
[2021-09-02] MEDS: ESCITALOPRAM OXALATE 5 MG TABLET PO SCH (08:59)
[2021-09-02] MEDS: thiamine 100mg tablet PO SCH ×2 (08:59→20:03)
[2021-09-02] MEDS: folic acid 1mg tablet PO SCH (08:59)
[2021-09-02] MEDS: nicotine 14mg patch - 24hr TD SCH (08:59)
--- NOTE | 2021-09-02 09:37 | NUR ---
Initial: Pt admit with depression and SI. Pt with EtOH hx, currently receiving routine Thiamine, Folic acid, and MVI. Currently on a regular diet and eating well with 100% PO intake throughout LOS. LBM 08/31, with PRN bowel care available. No documented edema or wounds. No nutrition diagnosis at this time. Will continue to follow. Recommendations: 1) Continue regular diet 2) Continue routine Thiamine, Folic acid, and MVI for EtOH hx 3) Bowel care PRN 4) Weekly scaled weights Addendum: 09/02/21 at [address] Amended: Links added.
--- NOTE | 2021-09-02 11:13 | NUR ---
PSYCHOSOCIAL ASSESSMENT Pt admitted on a 5150 for DTS from [facility]. Pt reported wanting to walk into traffic. Pt. reported that he drinks 2 liters of ETOH usually of vodka per day over the last 3 weeks. Before that he reported he was drinking 2 six packs of beer a day. Pt reported that he has suicidal ideation frequently and auditory hallucinations of music and humming. Pt has been off of his medications for 2-3 weeks. He does not have a Provider but gets these meds from the ER. He is not consistent with his medications because of his drinking issues. Pt reported that he moved to [place], [place] four months ago from [place] to visit his parents but decided to stay due to issues in [place]. He now lives with his parents (mom and stepdad) but reported that the environment is chaotic as they fight a lot. Their dog bit him in the face which makes him anxious to be around the dog. He reported that they are willing for him to come back to their home after discharge. Pt reported he has struggled with depression since high school. He has a history of alcohol abuse and has attempted rehab and therapy in the past but stated, Nothing ever helps. He reported he has been diagnosed with Major Depressive D/O and MITCHELL in the past as well. He did try outpt. Service at [facility] in [place], [place] but has not been consistent. He reported he thinks he will stay in [place], [place] but has no friends, job or income at this time which he finds depressing. His mood was depressive during out discussion with a restricted affect. When asked if he would like to try an inpatient rehab he appeared hesitant. He is willing to talk with substance abuse counselor at [facility] to talk about resources in the community for substance abuse. He reported he is still having some suicidal thoughts. He stated, They come and go. His thought content and thought process was WNL but he did report hearing sounds/voices at times. He was alert and oriented X 4. He was calm, compliant and pleasant to work with. Jocelyn Pollack LCSW
--- NOTE | 2021-09-02 11:58 | NUR ---
Nursing Progress Note: Legal hold: 5150 Client on involuntary status for DTS Report received from nurse with use of SBAR: IVY Jimenez Why are they here: Pt admitted on a 5150 for DTS from [facility]. Pt reported wanting to walk into traffic. PT reports he drinks 2 liters of ETOH usually Vodka per day. Pt reports he has suicidal ideation frequently and auditory hallucinations of music and humming. Pt has been off of his medications for 2-3 weeks. Pt lives with his parents but does not want to go home due to chaos and bickering. Pt has a history of depression and ETOH dependency. Assessment What has happened this shift: Received pt. laying in bed awake at the beginning of the shift, this show card writer greeted him and established rapport. Pt. independently attended breakfast in the Group Room, and afterwards remained up in the Recreation Room interacting appropriately with another female patient. He then showered, and 1:1 completed afterwards. Pt. presents as cooperative, anxious, and guarded with conversation. He denies any further S/I, however admits, "I'm just really depressed." When further questioned by this show card writer regarding the cause of his depression, pt. states in a guarded manner, "Just about my whole situation, and I need to find a job." He also reports ongoing anxiety and scheduled Ativan administered with effectiveness. Pt. continues to be monitored for any alcohol withdrawal s/s using the CIWA scale. Minimal withdrawals noted AEB anxiety and small tremors in bilateral upper extremities when arms held outstretched. Will continue to monitor and administer anxiolytics as needed. Pt. remained up throughout the day interacting appropriately with others and attended group. S/I, H/I: Pt. denies A/VH: Denies, does not appear to be internally preoccupied Sleep: Pt. reports he slept well, sleep hours are 6.5 ADL's: Independent Group attendance: Yes Were meds taken: Yes Any med S/E: None Mental Status Exam Appearance: Neat and appropriately dressed Eye contact: Moderate Behavior: Cooperative, anxious, and guarded Speech: Soft and minimal Mood: Guarded Affect: Blunted Thought process: Linear Thought Content: Ongoing depression Cognition: A&O X4 Insight: Poor Judgment: Poor Interventions PRN's used: None Therapeutic interventions: Introduced self and established rapport, maintained a safe and supportive environment, ensured contract for safety, provided clear and simple instructions, provided active listening and positive encouragement, and maintained Q 15mi min safety checks. Restraints/seclusion/emergency medication: N/A Justification of Continued Inpatient Treatment: Per Dr. Salazar, pt. continues to exhibit profound depressive s/s, and requires medication adjustments and a safe and supportive environment.
[2021-09-02] MEDS ORDERED: ESCITALOPRAM OXALATE 5 MG TABLET PO ONE (14:00)
[2021-09-02 20:00] VITALS: BP 144/91
[2021-09-02] MEDS: quetiapine 100mg tablet PO SCH (20:03)
--- NOTE | 2021-09-03 03:05 | NUR ---
Nursing Progress Note: Efren Legal hold: 5150 Client on involuntary status for DTS Report received from nurse with use of SBAR: IVY Berg Why are they here: Pt admitted on a 5150 for DTS from [facility]. Pt reported wanting to walk into traffic. PT reports he drinks 2 liters of ETOH usually Vodka per day. Pt reports he has suicidal ideation frequently and auditory hallucinations of music and humming. Pt has been off of his medications for 2-3 weeks. Pt lives with his parents but does not want to go home due to chaos and bickering. Pt has a history of depression and ETOH dependency. Assessment What has happened this shift: Received pt. lying in bed resting at change of shift. Pt. presents as cooperative, anxious, and guarded with conversation during 1:1 assessment. He denies any further S/I however he states his anxiety is 5/10. Scheduled Ativan given with good effect. Pt. continues to be monitored for alcohol withdrawal s/s using the CIWA scale. Minimal withdrawals noted with a score of 1. Will continue to monitor and administer anxiolytics as needed. S/I, H/I: Pt. denies A/VH: Denies, does not appear to be internally preoccupied Sleep: ADL's: Independent Group attendance: Yes Were meds taken: Yes Any med S/E: None Mental Status Exam Appearance: Neat and appropriately dressed Eye contact: Moderate Behavior: Cooperative, anxious, and guarded Speech: Soft and minimal Mood: Guarded Affect: Blunted Thought process: Linear Thought Content: Ongoing depression Cognition: A&O X4 Insight: Poor Judgment: Poor Interventions PRN's used: None Therapeutic interventions: Introduced self and established rapport, maintained a safe and supportive environment, ensured contract for safety, provided clear and simple instructions, provided active listening and positive encouragement, and maintained Q 15mi min safety checks. Restraints/seclusion/emergency medication: N/A Justification of Continued Inpatient Treatment: Per Dr. Salazar, pt. continues to exhibit profound depressive s/s, and requires medication adjustments and a safe and supportive environment.
[2021-09-03 08:00] VITALS: BP 120/73
[2021-09-03] MEDS: gabapentin 300mg capsule PO SCH ×3 (08:54→20:57)
[2021-09-03] MEDS: multivitamins, therapeutics tablet PO SCH (08:54)
[2021-09-03] MEDS: LORazepam 1 MG tablet PO SCH ×4 (08:54→20:01)
[2021-09-03] MEDS: nicotine 14mg patch - 24hr TD SCH (08:54)
[2021-09-03] MEDS: thiamine 100mg tablet PO SCH ×2 (08:54→20:57)
[2021-09-03] MEDS: ESCITALOPRAM OXALATE 5 MG TABLET PO SCH (08:54)
[2021-09-03] MEDS: folic acid 1mg tablet PO SCH (08:54)
--- NOTE | 2021-09-03 17:05 | NUR ---
Nursing Progress Note: Legal hold: Voluntary Client on involuntary status for DTS Report received from nurse with use of SBAR: IVY Berg Why are they here: Pt admitted on a 5150 for DTS from [facility]. Pt reported wanting to walk into traffic. PT reports he drinks 2 liters of ETOH usually Vodka per day. Pt reports he has suicidal ideation frequently and auditory hallucinations of music and humming. Pt has been off of his medications for 2-3 weeks. Pt lives with his parents but does not want to go home due to chaos and bickering. Pt has a history of depression and ETOH dependency. Assessment What has happened this shift: Received pt. sleeping in bed at the beginning of the shift, he awoke and attended breakfast in the Group Room. Pt. remained up throughout much of the day interacting appropriately with others and drawing. Pt. bossman a very artistic picture on the white board in the Recreation Room. He continues to appear to be close with another female peer, however no inappropriate behaviors observed. 1:1 completed later at bedside, pt. continues to be cooperative and pleasant however remains guarded with conversation. He denies any S/I, however admits to some ongoing depression and appears to be minimizing MH s/s. Pt. states, "I'm okay I guess." He does report some ongoing anxiety. Pt. continues to score a one or two on the CIWA, and assessment discontinued by ALDAIR Phan. Will endorse to Noc shift and continue to monitor. S/I, H/I: Pt. denies A/VH: Denies, does not appear to be internally preoccupied Sleep: Pt. reports he slept well, sleep hours are 6.75 ADL's: Independent Group attendance: N/A Were meds taken: Yes Any med S/E: None Mental Status Exam Appearance: Neat and appropriately dressed Eye contact: Moderate Behavior: Cooperative, anxious, and guarded Speech: Soft and minimal Mood: Guarded Affect: Constricted Thought process: Linear Thought Content: Ongoing depression Cognition: A&O X4 Insight: Poor Judgment: Poor Interventions PRN's used: None Therapeutic interventions: Maintained a safe and supportive environment, ensured contract for safety, provided clear and simple instructions, provided active listening and positive encouragement, obtained orders to discontinue CIWA, and maintained Q 15mi min safety checks. Restraints/seclusion/emergency medication: N/A Justification of Continued Inpatient Treatment: ALDAIR Bustamante, pt. continues to exhibit depression and requires a safe and supportive environment. He will possibly discharge to a rehabilitation program when ready.
[2021-09-03 20:05] VITALS: BP 125/66
[2021-09-03] MEDS: quetiapine 100mg tablet PO SCH (20:57)
[2021-09-03] MEDS: traZODone 50mg tablet PO SCH (20:57)
--- NOTE | 2021-09-04 00:56 | NUR ---
Nursing Progress Note: Efren Legal hold: 5150 Client on involuntary status for DTS Report received from nurse with use of SBAR: Carson RN Why are they here: Pt admitted on a 5150 for DTS from [facility]. Pt reported wanting to walk into traffic. PT reports he drinks 2 liters of ETOH usually Vodka per day. Pt reports he has suicidal ideation frequently and auditory hallucinations of music and humming. Pt has been off of his medications for 2-3 weeks. Pt lives with his parents but does not want to go home due to chaos and bickering. Pt has a history of depression and ETOH dependency. Assessment What has happened this shift: Received pt. lying in bed at shift change. Pt appears depressed and withdrawn but is friendly for 1;1. Pt denied having and needs or concerns but did express that he does not feel ready to dc. Pt would not elaborate on why he feels this way. All hs meds were taken without issue. S/I, H/I: Pt. denies A/VH: Denies, does not appear to be internally preoccupied Sleep: see sleep assessment ADL's: Independent Group attendance: Yes Were meds taken: Yes Any med S/E: None Mental Status Exam Appearance: Neat and appropriately dressed Eye contact: Moderate Behavior: Cooperative, anxious, and guarded Speech: Soft and minimal Mood: Guarded Affect: Blunted Thought process: Linear Thought Content: Ongoing depression Cognition: A&O X4 Insight: Poor Judgment: Poor Interventions PRN's used: None Therapeutic interventions: Introduced self and established rapport, maintained a safe and supportive environment, ensured contract for safety, provided clear and simple instructions, provided active listening and positive encouragement, and maintained Q 15mi min safety checks. Restraints/seclusion/emergency medication: N/A Justification of Continued Inpatient Treatment: Per Dr. Salazar, pt. continues to exhibit profound depressive s/s, and requires medication adjustments and a safe and supportive environment.
[2021-09-04 08:27] VITALS: BP 114/68
[2021-09-04] MEDS: LORazepam 1 MG tablet PO SCH ×4 (08:33→20:17)
[2021-09-04] MEDS: multivitamins, therapeutics tablet PO SCH (08:33)
[2021-09-04] MEDS: ESCITALOPRAM OXALATE 5 MG TABLET PO SCH (08:34)
[2021-09-04] MEDS: folic acid 1mg tablet PO SCH (08:37)
[2021-09-04] MEDS: gabapentin 300mg capsule PO SCH ×3 (08:38→20:17)
[2021-09-04] MEDS: thiamine 100mg tablet PO SCH ×2 (08:38→20:17)
[2021-09-04] MEDS: nicotine 14mg patch - 24hr TD SCH (08:38)
--- NOTE | 2021-09-04 12:30 | NUR ---
Nursing Progress Note: Efren Legal hold: 5150 Client on involuntary status for DTS Report received from nurse with use of SBAR: Carson RN Why are they here: Pt admitted on a 5150 for DTS from [facility]. Pt reported wanting to walk into traffic. PT reports he drinks 2 liters of ETOH usually Vodka per day. Pt reports he has suicidal ideation frequently and auditory hallucinations of music and humming. Pt has been off of his medications for 2-3 weeks. Pt lives with his parents but does not want to go home due to chaos and bickering. Pt has a history of depression and ETOH dependency. Assessment What has happened this shift: Pt was up early today, observed interacting with his peers in an appropriate manner. Pt denies being suicidal but appears depressed and withdrawn. Pt is friendly and polite for assessments and accepts meds without issue. Pt believes he is still not ready to be dcd. S/I, H/I: Pt. denies A/VH: Denies, does not appear to be internally preoccupied Sleep: see sleep assessment ADL's: Independent Group attendance: Yes Were meds taken: Yes Any med S/E: None Mental Status Exam Appearance: Neat and appropriately dressed Eye contact: Moderate Behavior: Cooperative, anxious, and guarded Speech: Soft and minimal Mood: Guarded Affect: Blunted Thought process: Linear Thought Content: Ongoing depression Cognition: A&O X4 Insight: Poor Judgment: Poor Interventions PRN's used: None Therapeutic interventions: Introduced self and established rapport, maintained a safe and supportive environment, ensured contract for safety, provided clear and simple instructions, provided active listening and positive encouragement, and maintained Q 15mi min safety checks. Restraints/seclusion/emergency medication: N/A Justification of Continued Inpatient Treatment: Per Dr. Salazar, pt. continues to exhibit profound depressive s/s, and requires medication adjustments and a safe and supportive environment.
[2021-09-04 19:47] VITALS: BP 105/78
[2021-09-04] MEDS: traZODone 50mg tablet PO SCH (20:17)
[2021-09-04] MEDS: quetiapine 100mg tablet PO SCH (20:17)
--- NOTE | 2021-09-05 00:46 | NUR ---
Nursing Progress Note: Legal hold: VOL Client on voluntary status Report received from nurse with use of SBAR: Carson RN Why are they here: Pt admitted on a 5150 for DTS from [facility]. Pt reported wanting to walk into traffic. PT reports he drinks 2 liters of ETOH usually Vodka per day. Pt reports he has suicidal ideation frequently and auditory hallucinations of music and humming. Pt has been off of his medications for 2-3 weeks. Pt lives with his parents but does not want to go home due to chaos and bickering. Pt has a history of depression and ETOH dependency. Assessment What has happened this shift: Patient social with peer in the community room at the beginning of shift. Pleasant and cooperative with care; compliant with medication. Nicotine patch removed/discarded by real estate underwriter. Patient denies SI, HI, A/VH; does not appear to be responding to IS and no delusional thought content expressed this shift. Patient continued to socialize with peer and participated in HS snack prior to bed; observed sleeping and does not appear to be having difficulty. S/I, H/I: Denies A/VH: Denies Sleep: Refer to sleep assessment ADL's: Independent Group attendance: NA Were meds taken: Yes Any med S/E: None observed or reported Mental Status Exam Appearance: Neat and appropriately dressed Eye contact: Good Behavior: Pleasant and cooperative, social Speech: Clear, soft, regular rate/rhythm Mood: Anxious, depressed Affect: Constricted Thought process: Linear Thought Content: Meeting needs Cognition: A&O X4 Insight: Poor Judgment: Poor Interventions PRN's used: None Therapeutic interventions: Introduced self and established rapport, maintained a safe and supportive environment, ensured contract for safety, provided clear and simple instructions, provided active listening and positive encouragement, and maintained Q 15mi min safety checks. Restraints/seclusion/emergency medication: N/A Justification of Continued Inpatient Treatment: Per Dr. Salazar, pt. continues to exhibit profound depressive s/s, and requires medication adjustments and a safe and supportive environment.
[2021-09-05 08:00] VITALS: BP 105/58
[2021-09-05] MEDS: gabapentin 300mg capsule PO SCH ×3 (08:26→20:30)
[2021-09-05] MEDS: multivitamins, therapeutics tablet PO SCH (08:26)
[2021-09-05] MEDS: folic acid 1mg tablet PO SCH (08:27)
[2021-09-05] MEDS: ESCITALOPRAM OXALATE 5 MG TABLET PO SCH (08:27)
[2021-09-05] MEDS: thiamine 100mg tablet PO SCH ×2 (08:27→20:30)
[2021-09-05] MEDS: LORazepam 1 MG tablet PO SCH ×4 (08:28→21:00)
[2021-09-05] MEDS: nicotine 14mg patch - 24hr TD SCH (08:28)
--- NOTE | 2021-09-05 13:50 | NUR ---
Nursing Progress Note: Efren Legal hold: Vol Client on involuntary status for DTS Report received from nurse with use of SBAR: IVY Rodriguez Why are they here: Pt admitted on a 5150 for DTS from [facility]. Pt reported wanting to walk into traffic. PT reports he drinks 2 liters of ETOH usually Vodka per day. Pt reports he has suicidal ideation frequently and auditory hallucinations of music and humming. Pt has been off of his medications for 2-3 weeks. Pt lives with his parents but does not want to go home due to chaos and bickering. Pt has a history of depression and ETOH dependency. Assessment What has happened this shift: Pt was up early today, observed interacting with his peers in an appropriate manner. Pt denies being suicidal but appears depressed and withdrawn. The Addiction Navigator spoke again to the patient who still does not know if he wants to go to rehab. Patient took his medications. Patient is polite and cooperative. Patient is depressed and having suicidal thoughts throughout the day. S/I, H/I: States he has suicidal thoughts throughout the day. A/VH: Denies Sleep: Napped in morning and afternoon ADL's: Independent Group attendance: Yes Were meds taken: Yes Any med S/E: None Mental Status Exam Appearance: Neat and appropriately dressed Eye contact: Good Behavior: Withdrawn, Cooperative Speech: Soft, Poverty of speech Mood: Depressed Affect: Flat Thought process: Linear Thought Content: depression Cognition: A&O X4 Insight: Poor Judgment: Poor Interventions PRN's used: None Therapeutic interventions: Introduced self and established rapport, maintained a safe and supportive environment, ensured contract for safety, provided clear and simple instructions, provided active listening and positive encouragement, and maintained Q 15mi min safety checks. Restraints/seclusion/emergency medication: N/A Justification of Continued Inpatient Treatment: Per Dr. Salazar, pt. continues to exhibit profound depressive s/s, and requires medication adjustments and a safe and supportive environment.
--- NOTE | 2021-09-05 14:18 | NUR ---
Pt attended group today. Today we talked about the definition of resiliency, the ways to build resiliency and how to bounce back. They took a change resiliency test to see how they are able to manage change and discussed coping skills to help while navigating change. Pt did not engage much in the group, he declined sharing his thoughts. His mood appeared to be depressive and his affect was flat. He mostly stared in front of himself and would only speak if asked what he was thinking. At that point he would decline speaking. He did do the change test but did not want to share his thoughts about it. He was alert and oriented X 4. Jocelyn Pollack, PERSONNEL SECURITY ASSISTANT
[2021-09-05 20:17] VITALS: BP 120/71
[2021-09-05] MEDS: quetiapine 100mg tablet PO SCH (20:30)
[2021-09-05] MEDS: traZODone 50mg tablet PO SCH (20:30)
--- NOTE | 2021-09-06 00:18 | NUR ---
Nursing Progress Note: Efren Legal hold: 5150 Client on involuntary status for DTS Report received from nurse with use of SBAR: Carson RN Why are they here: Pt admitted on a 5150 for DTS from [facility]. Pt reported wanting to walk into traffic. PT reports he drinks 2 liters of ETOH usually Vodka per day. Pt reports he has suicidal ideation frequently and auditory hallucinations of music and humming. Pt has been off of his medications for 2-3 weeks. Pt lives with his parents but does not want to go home due to chaos and bickering. Pt has a history of depression and ETOH dependency. Assessment What has happened this shift: Pt was more isolative this evening, only coming out of his room when he has needs. Pt asked if the doctor was here tonight, as he wants to go home. pt agreed to stay the night and discuss his desire to dc with the provider tomorrow. Pt denies all mh symptoms and accepted hs meds without issue. S/I, H/I: Pt. denies A/VH: Denies Sleep: see sleep assessment ADL's: Independent Group attendance: Yes Were meds taken: Yes Any med S/E: None Mental Status Exam Appearance: Neat and appropriately dressed Eye contact: Moderate Behavior: Cooperative, anxious, and guarded Speech: Soft and minimal Mood: Guarded Affect: Blunted Thought process: Linear Thought Content: Ongoing depression Cognition: A&O X4 Insight: Poor Judgment: Poor Interventions PRN's used: None Therapeutic interventions: Introduced self and established rapport, maintained a safe and supportive environment, ensured contract for safety, provided clear and simple instructions, provided active listening and positive encouragement, and maintained Q 15mi min safety checks. Restraints/seclusion/emergency medication: N/A Justification of Continued Inpatient Treatment: Per Dr. Salazar, pt. continues to exhibit profound depressive s/s, and requires medication adjustments and a safe and supportive environment.
[2021-09-06 08:33] VITALS: BP 94/76
[2021-09-06] MEDS: multivitamins, therapeutics tablet PO SCH (08:40)
[2021-09-06] MEDS: folic acid 1mg tablet PO SCH (08:40)
[2021-09-06] MEDS: gabapentin 300mg capsule PO SCH ×3 (08:41→20:28)
[2021-09-06] MEDS: ESCITALOPRAM OXALATE 5 MG TABLET PO SCH (08:41)
[2021-09-06] MEDS: thiamine 100mg tablet PO SCH ×2 (08:41→20:28)
[2021-09-06] MEDS: LORazepam 1 MG tablet PO SCH ×4 (08:42→20:28)
[2021-09-06] MEDS: nicotine 14mg patch - 24hr TD SCH (08:43)
--- NOTE | 2021-09-06 14:59 | NUR ---
Nursing Progress Note: Efren Legal hold: [employer] Client on involuntary status for DTS Report received from nurse with use of SBAR: IVY Rodriguez Why are they here: Pt admitted on a 5150 for DTS from [facility]. Pt reported wanting to walk into traffic. PT reports he drinks 2 liters of ETOH usually Vodka per day. Pt reports he has suicidal ideation frequently and auditory hallucinations of music and humming. Pt has been off of his medications for 2-3 weeks. Pt lives with his parents but does not want to go home due to chaos and bickering. Pt has a history of depression and ETOH dependency. Assessment What has happened this shift: Patient was asleep at change of shift and up for breakfast. Patient takes his medication without any problems. Patient wanting to speak to Dr. Salazar about going home. Dr. Salazar spoken to him soon after RN did. Per Dr. Salazar, patient needs to be here a few more days. Patient is linear and then disorganized. Patient told RN in the afternoon that she wants to go home sooner. RN advised patient to speak to Dr. Salazar. Patient keeps asking questions of the nurse. Patient is calm and cooperative. S/I, H/I: Denies A/VH: Denies Sleep: Napped in morning and afternoon ADL's: Independent Group attendance: Yes Were meds taken: Yes Any med S/E: None Mental Status Exam Appearance: Neat and appropriately dressed Eye contact: Good Behavior: Withdrawn, Cooperative Speech: Soft Mood: Euthymic Affect: Flat Thought process: Linear Thought Content: Wanting to go home Cognition: A&O X4 Insight: Poor Judgment: Poor Interventions PRN's used: None Therapeutic interventions: Introduced self and established rapport, maintained a safe and supportive environment, ensured contract for safety, provided clear and simple instructions, provided active listening and positive encouragement, and maintained Q 15mi min safety checks. Restraints/seclusion/emergency medication: N/A Justification of Continued Inpatient Treatment: Per Dr. Salazar, pt. and requires a few more days to stabilize and a safe and supportive environment.
[2021-09-06] MEDS: quetiapine 100mg tablet PO SCH (20:28)
[2021-09-06] MEDS: traZODone 50mg tablet PO SCH (20:28)
[2021-09-06 20:38] VITALS: BP 134/81
--- NOTE | 2021-09-06 22:05 | NUR ---
Nursing Progress Note: Efren Legal hold: [facility] Client on involuntary status for DTS Report received from nurse with use of SBAR: IVY Rodriguez Why are they here: Pt admitted on a 5150 for DTS from [facility]. Pt reported wanting to walk into traffic. PT reports he drinks 2 liters of ETOH usually Vodka per day. Pt reports he has suicidal ideation frequently and auditory hallucinations of music and humming. Pt has been off of his medications for 2-3 weeks. Pt lives with his parents but does not want to go home due to chaos and bickering. Pt has a history of depression and ETOH dependency. Assessment What has happened this shift: Patient was sitting in his bed reading for most of the evening. Patient's Ativan was decreased today from 1 mg QID to 1 mg TID. Patient denies all symptoms and says he is ready to go home. RN reiterated that he needs to speak to Dr Salazar tomorrow about how he feels. Patient does not feel he needs to go to rehab. RN believes patient has very poor insight. Patient is calm and in no distress. S/I, H/I: Denies A/VH: Denies Sleep: Up reading until about 9:30. ADL's: Independent Group attendance: N/A Were meds taken: Yes Any med S/E: None Mental Status Exam Appearance: Neat and appropriately dressed Eye contact: Good Behavior: Withdrawn, Cooperative Speech: Soft Mood: Euthymic Affect: Flat Thought process: Linear Thought Content: Wanting to go home Cognition: A&O X4 Insight: Poor Judgment: Poor Interventions PRN's used: None Therapeutic interventions: Introduced self and established rapport, maintained a safe and supportive environment, ensured contract for safety, provided clear and simple instructions, provided active listening and positive encouragement, and maintained Q 15mi min safety checks. Restraints/seclusion/emergency medication: N/A Justification of Continued Inpatient Treatment: Per Dr. Salazar, pt. and requires a few more days to stabilize and a safe and supportive environment.
[2021-09-07 08:00] VITALS: BP 109/48
[2021-09-07] MEDS: ESCITALOPRAM OXALATE 5 MG TABLET PO SCH (08:46)
[2021-09-07] MEDS: multivitamins, therapeutics tablet PO SCH (08:46)
[2021-09-07] MEDS: gabapentin 300mg capsule PO SCH ×3 (08:46→20:38)
[2021-09-07] MEDS: LORazepam 1 MG tablet PO SCH ×3 (08:46→20:38)
[2021-09-07] MEDS: thiamine 100mg tablet PO SCH ×2 (08:46→20:36)
[2021-09-07] MEDS: folic acid 1mg tablet PO SCH (08:46)
[2021-09-07] MEDS: nicotine 14mg patch - 24hr TD SCH (08:47)
--- NOTE | 2021-09-07 16:57 | NUR ---
NURSING PROGRESS NOTE: Efren Leo Legal hold: Vol. Voluntary hold for DTS Report received from IVY Clemons with use of SBAR. Why are they here: Pt admitted on a 5150 for DTS from [facility]. Pt reported wanting to walk into traffic. PT reports he drinks 2 liters of ETOH usually Vodka per day. Pt reports he has suicidal ideation frequently and auditory hallucinations of music and humming. Pt has been off of his medications for 2-3 weeks. Pt lives with his parents but does not want to go home due to chaos and bickering. Pt has a history of depression and ETOH dependency. Assessment What has happened this shift: Received pt. sleeping in his room this morning. Pt. woke to receive his medication. Assessment 1:1 completed pt. denies SI, HI. Pt. presents as guarded but did report I have problem with alcohol, and that why Im here. Pt. has a plan to go home from here. Provider is tapering Ativan as DC is upcoming. Later I observed pt. drawing horses in his room. Pt. presents with good insight AEB stating art helps me relax. Later pt. participated in group. He ate lunch in the dining room and was observed socializing with cohorts. Pt. self isolates in his room most of the afternoon, but appears to occupy his time tiding up his surroundings and creating art. Pt. currently in fu near his room on the phone. SI, H/I: Denies A/VH: Denies Sleep: 8.5 hours per NOC. No naps. ADL's: Independent Group attendance: Yes Were meds taken: Yes. Any med S/E: None observed or reported Mental Status Exam Appearance: Young male, clean cut, dressed in green unit scrubs. Eye contact: Good Behavior: Cooperative, guarded. Speech: Clear, soft tone. Mood: Depressed Affect: Congruent to mood. Thought process: Linear Thought Content: Im doing okay. Cognition: A&Ox4 Insight: Poor Judgment: Fair Interventions PRN's used: None Therapeutic interventions: Maintained safe and therapeutic environment, medication administration/education/monitoring, encouraged pt to get up for meals, therapeutic listening, and encouraged pt to participate in unit activities, Q15 minute safety checks. Restraints/seclusion/emergency medication: N/A Justification: Per Dr. Salazar, pt. and requires a few more days to stabilize and a safe and supportive environment.
[2021-09-07 19:14] VITALS: BP 138/89
[2021-09-07] MEDS: quetiapine 100mg tablet PO SCH (20:36)
[2021-09-07] MEDS: traZODone 50mg tablet PO SCH (20:38)
--- NOTE | 2021-09-08 00:21 | NUR ---
Nursing Progress Note: Legal hold: Voluntary Client on involuntary status for DTS Report received from nurse with use of SBAR: Elissa RN Why are they here: Pt admitted on a 5150 for DTS from [facility]. Pt reported wanting to walk into traffic. PT reports he drinks 2 liters of ETOH usually Vodka per day. Pt reports he has suicidal ideation frequently and auditory hallucinations of music and humming. Pt has been off of his medications for 2-3 weeks. Pt lives with his parents but does not want to go home due to chaos and bickering. Pt has a history of depression and ETOH dependency. Assessment What has happened this shift: Patient spent the majority of the shift in small tv room watching shows with other patients. Patient also socialized and walked around with other patients. Patient was pleasant and took all medications. Patient participated in snack time before going to bed. Patient slept with no difficulty. S/I, H/I: Pt. denies A/VH: Denies Sleep: see sleep assessment ADL's: Independent Group attendance: Yes Were meds taken: Yes Any med S/E: None Mental Status Exam Appearance: Neat and appropriately dressed Eye contact: Moderate Behavior: Cooperative, anxious Speech: Soft and minimal Mood: Guarded Affect: Blunted Thought process: Linear Thought Content: Ongoing depression Cognition: A&O X4 Insight: Poor Judgment: Poor Interventions PRN's used: None Therapeutic interventions: Introduced self and established rapport, maintained a safe and supportive environment, ensured contract for safety, provided clear and simple instructions, provided active listening and positive encouragement, and maintained Q 15mi min safety checks. Restraints/seclusion/emergency medication: N/A Justification of Continued Inpatient Treatment: Per Dr. Salazar, pt. continues to exhibit profound depressive s/s, and requires medication adjustments and a safe and supportive environment.
[2021-09-08] MEDS: folic acid 1mg tablet PO SCH (07:54)
[2021-09-08] MEDS: gabapentin 300mg capsule PO SCH ×3 (07:54→20:06)
[2021-09-08] MEDS: ESCITALOPRAM OXALATE 5 MG TABLET PO SCH (07:54)
[2021-09-08] MEDS: multivitamins, therapeutics tablet PO SCH (07:54)
[2021-09-08] MEDS: thiamine 100mg tablet PO SCH ×2 (07:54→20:03)
[2021-09-08] MEDS: nicotine 14mg patch - 24hr TD SCH (07:55)
[2021-09-08] MEDS: LORazepam 1 MG tablet PO SCH ×3 (07:55→20:04)
[2021-09-08 08:00] VITALS: BP 112/82
--- NOTE | 2021-09-08 14:00 | NUR ---
Group Art Tx Continued: Patient was motivated to participate, fully completing both the Self Care Wheel and his pricer bagger of His "Steps on MY Path to Wellness." Patient was able to share and was supportive of his peers during the group process. *Please refer to the [facility] Group Case Notes for entire overview. Christal Barragan MA, DEVELOPMENT ENGINEER #[id number] [facility], Art Therapist Addendum: 09/08/21 at 1629 by Christal Barragan SS Amended: Links added.
--- NOTE | 2021-09-08 17:00 | NUR ---
NURSING PROGRESS NOTE: Efren Leo Legal hold: Voluntary Hold for DTS Report received from IVY Clemons with use of SBAR. Why are they here: Pt admitted on a 5150 for DTS from [facility]. Pt reported wanting to walk into traffic. PT reports he drinks 2 liters of ETOH usually Vodka per day. Pt reports he has suicidal ideation frequently and auditory hallucinations of music and humming. Pt has been off of his medications for 2-3 weeks. Pt lives with his parents but does not want to go home due to chaos and bickering. Pt has a history of depression and ETOH dependency. Assessment What has happened this shift: Received pt. sleeping in his room. Awoke to receive his medications, 1:1 assessment completed and pt. denies SI, HI. Pt. presents as guarded and provides minimal answers when spoken too. Pt. appears in a depressed mood with flat affect at times and isolating himself to his room intermittently. Pt. continues on tapered Ativan with zero ASEs reported. Pt. ate breakfast and lunch in dining room and was observed engaging in group. Later pt. observed self-isolated in his room and drawing for several hours. Pt. did leave his room for snack but did not engage socially with cohorts. SI, H/I: Denies A/VH: Denies Sleep: 7.75 hours per NOC. No naps. ADL's: Independent Group attendance: Yes Were meds taken: Yes. Any med S/E: None observed or reported Mental Status Exam Appearance: Clean, dressed in green unit scrubs. Eye contact: Good Behavior: Cooperative, guarded. Speech: Clear, soft tone. Mood: Depressed Affect: Congruent to mood. Thought process: Linear Thought Content: Artwork Cognition: A&Ox4 Insight: Poor Judgment: Fair Interventions PRN's used: None Therapeutic interventions: Maintained safe and therapeutic environment, medication administration/education/monitoring, encouraged pt to get up for meals, therapeutic listening, and encouraged pt to participate in unit activities, [facility] protocol; Q15 minute safety checks. Restraints/seclusion/emergency medication: N/A Justification: Patient requires an interruption of his current depressive episode. Pt requires medication initiation and adjustment in a safe therapeutic milieu.
[2021-09-08 19:20] VITALS: BP 139/89
[2021-09-08] MEDS: traZODone 50mg tablet PO SCH (20:02)
[2021-09-08] MEDS: quetiapine 100mg tablet PO SCH (20:07)
--- NOTE | 2021-09-09 03:49 | NUR ---
Nursing Progress Note: Legal hold: Voluntary Client on involuntary status for DTS Report received from nurse with use of SBAR: IVY Berg Why are they here: Pt admitted on a 5150 for DTS from [facility]. Pt reported wanting to walk into traffic. PT reports he drinks 2 liters of ETOH usually Vodka per day. Pt reports he has suicidal ideation frequently and auditory hallucinations of music and humming. Pt has been off of his medications for 2-3 weeks. Pt lives with his parents but does not want to go home due to chaos and bickering. Pt has a history of depression and ETOH dependency. Assessment What has happened this shift:Patient spent most of the shift laying in bed. Patient stated he wasn't feeling that good today. He was having some negative thoughts but he was working through it. Patient asked for Ativan to help with his anxiety. Patient was given scheduled medications including Ativan. Patient slept with no difficulty S/I, H/I: Pt. denies A/VH: Denies Sleep: see sleep assessment ADL's: Independent Group attendance: Yes Were meds taken: Yes Any med S/E: None Mental Status Exam Appearance: Clean and dressed in green scrub bottoms and personal top. Eye contact: Moderate Behavior: Cooperative, anxious Speech: Soft and minimal Mood: Guarded Affect: Blunted Thought process: Linear Thought Content: Ongoing depression Cognition: A&O X4 Insight: Poor Judgment: Poor Interventions PRN's used: None Therapeutic interventions: Introduced self and established rapport, maintained a safe and supportive environment, ensured contract for safety, provided clear and simple instructions, provided active listening and positive encouragement, and maintained Q 15mi min safety checks. Restraints/seclusion/emergency medication: N/A Justification of Continued Inpatient Treatment: Per Dr. Salazar, pt. continues to exhibit profound depressive s/s, and requires medication adjustments and a safe and supportive environment.
[2021-09-09] MEDS: thiamine 100mg tablet PO SCH (07:45)
[2021-09-09] MEDS: ESCITALOPRAM OXALATE 5 MG TABLET PO SCH (07:45)
[2021-09-09] MEDS: gabapentin 300mg capsule PO SCH ×2 (07:45→13:13)
[2021-09-09] MEDS: nicotine 14mg patch - 24hr TD SCH (07:45)
[2021-09-09] MEDS: multivitamins, therapeutics tablet PO SCH (07:45)
[2021-09-09] MEDS: folic acid 1mg tablet PO SCH (07:45)
[2021-09-09] MEDS ORDERED: LORazepam 1 MG tablet PO SCH (08:00)
[2021-09-09 08:48] VITALS: BP 100/49
[2021-09-09] MEDS ORDERED: QUET100T34 PO (12:53)
[2021-09-09] MEDS ORDERED: LORA-268 PO (12:53)
[2021-09-09] MEDS ORDERED: GABA300C PO (12:53)
[2021-09-09] MEDS ORDERED: ESCI20TA39 PO (12:53)
[2021-09-09] MEDS ORDERED: MULT-25 PO (12:53)
[2021-09-09] MEDS ORDERED: NICO-631 TD (12:53)
[2021-09-09] MEDS ORDERED: TRAZ-251 PO (12:53)
--- NOTE | 2021-09-09 14:29 | NUR ---
Patient discharged from [facility] and escorted from unit at approximately 1425. He was picked up by taxi service in front of the main hospital entrance. Discharge instructions received and patient verbalized understanding. Patients belongings inventoried and returned to him. Patient is calm, cooperative, A&O x4, no apartment distress or complaints. Patient verbalized understanding of discharge plan, medications, and follow-up appointment. He left the hospital without incident.
== END 2021-09-09 13:40 | disposition home or self-care (01) | DRG 751 ==
LOC: ADULT MH 14:21
PROVIDERS: ADMIT Psychiatry & Neurology Psychiatry; ATTEND Psychiatry & Neurology Psychiatry
DX: F33.2 Major depressive disorder, recurrent severe without psychotic features (principal); R45.851 Suicidal ideations; F10.20 Alcohol dependence, uncomplicated; F17.210 Nicotine dependence, cigarettes, uncomplicated; R45.84 Anhedonia; G47.00 Insomnia, unspecified; F41.9 Anxiety disorder, unspecified; M54.31 Sciatica, right side; Z81.1 Family history of alcohol abuse and dependence; Z81.8 Family history of other mental and behavioral disorders; Z88.1 Allergy status to other antibiotic agents; Z79.899 Other long term (current) drug therapy; Z71.6 Tobacco abuse counseling
CPT/HCPCS: 36415; 80053; 80061; 83036; 84443; 85025; 87081

== ENCOUNTER 2021-10-09 14:29 | Emergency (ER) | payer MEDICAID ==
[~2021-10-09] VITALS: Ht 177.8 cm; Wt 86.4 kg
[~2021-10-09 14:29] MED LIST changes: -ACAM333T8 PO; +ESCI-8 PO; -ESCI5TAB PO; -GABA300C PO; +GABA600T13 PO; +NICO-630 TOP; +NICO-907 BC; -OLAN5TAB5 PO; +PROP20TA6 PO; -QUET-1 PO; +QUET100T34 PO
--- NOTE | 2021-10-09 15:15 | NUR ---
PT AMBULATING TO BR WITH 2 PERSON ASST, UNSTEADY ON HIS FEET ALMOST FELL BUT WAS CAUGHT BY STAFF AND TAKEN BACK TO BED.
[2021-10-09 15:40] LABS: BASOPHILS # (AUTO) 0.1 X10'3 (0-0.2); BASOPHILS % (AUTO) 1.5 % (0-1); EOSINOPHILS # (AUTO) 0.2 X10'3 (0-0.9); EOSINOPHILS % (AUTO) 2.8 % (0-6); HEMATOCRIT 45.9 % (42.0-52.0); HEMOGLOBIN 16.4 g/dl (14.0-17.9); LYMPHOCYTES # (AUTO) 2.1 X10'3 (1.1-4.8); LYMPHOCYTES % (AUTO) 28.6 % (21-51); MEAN CORPUSCULAR HEMOGLOBIN 33.4 PG (27.0-31.0); MEAN CORPUSCULAR HGB CONC 35.6 g/dL (33.0-36.5); MEAN CORPUSCULAR VOLUME 93.8 FL (78-98); MEAN PLATELET VOLUME 7.9 FL (7.4-10.4); MONOCYTES # (AUTO) 0.6 X10'3 (0-0.9); MONOCYTES % (AUTO) 8.5 % (2-12); NEUTROPHILS # (AUTO) 4.3 X10'3 (1.8-7.7); NEUTROPHILS % (AUTO) 58.6 % (42-75); PLATELET COUNT 293 X10'3 (140-440); RED BLOOD COUNT 4.89 X10'6 (4.70-6.10); RED CELL DISTRIBUTION WIDTH 13.2 % (11.5-14.5); WHITE BLOOD COUNT 7.3 X10'3 (4.5-11.0)
[2021-10-09] MEDS ORDERED: diphenhydrAMINE 50 mg/ml inj IM ONE (15:40)
[2021-10-09] MEDS ORDERED: LORazepam 2 mg/ml vial IM ONE ×3 (15:40→17:30)
[2021-10-09 15:49] LABS: ALANINE AMINOTRANSFERASE 42 U/L (12-78); ALBUMIN 4.7 G/DL (3.4-5.0); ALBUMIN/GLOBULIN RATIO 1.4 (1.1-1.5); ALKALINE PHOSPHATASE 75 IU/L (46-116); ANION GAP 12 (8-16); ASPARTATE AMINO TRANSFERASE 45 U/L (10-37); BILIRUBIN,TOTAL 0.5 MG/DL (0.1-1.0); BLOOD UREA NITROGEN 6 MG/DL (7-18); BUN/CREATININE RATIO 6.1 (5.4-32.0); CALCIUM 8.8 MG/DL (8.5-10.1); CHLORIDE 102 MMOL/L (99-107); CREATININE 0.99 MG/DL (0.60-1.10); GLUCOSE 105 MG/DL (70-104); POTASSIUM 3.9 MMOL/L (3.5-5.1); SODIUM 142 MMOL/L (135-145); TOTAL CARBON DIOXIDE 27.7 MMOL/L (24-32); TOTAL PROTEIN 8.1 G/DL (6.4-8.2); eGFR 88 ML/MIN
--- NOTE | 2021-10-09 15:49 | NUR ---
PT WALKED OVER FROM MAIN UNSTEADY BED, WITH ASST OF DOCK OPERATIONS SUPERVISOR AND [employer] POLICE. PT STATES, I DRANK ONE LITER ONCE A DAY FOR PAST 3 DAYS. CONTINUING TO GET UP AND WALK TO BR. INFORMED ALDAIR ROSENBERG PLEASE SEE NEW ORDER.
[2021-10-09 15:57] LABS: ETHANOL 0.345 GM/DL (0.0-0.010)
[2021-10-09 15:58] LABS: ACETAMINOPHEN < 2.0 UG/ML (10-30)
--- NOTE | 2021-10-09 16:20 | NUR ---
PT CONTINUES TO WANT TO GET UP TO AMBULATE TO . PT STR CATH FOR URINE. NO URINE OBTAINED. BLADDER SCAN SHOWED 198CC. CONDOM CATH APPLIED.
[2021-10-09] MEDS ORDERED: folic acid 1mg/0.2ml inj IV ONE (16:30)
[2021-10-09] MEDS ORDERED: thiamine 100mg/ml 2ml inj. IM ONE (16:30)
[2021-10-09] MEDS ORDERED: normal saline 1000ml 1,000 ML IV ONE (16:30)
--- NOTE | 2021-10-09 17:02 | NUR ---
CALLED POISON CONTROL AND SPOKE WITH [facility]I. RECOMMENDATION: BMP, ETOH LEVEL, TYLENOL LEVEL, ASA. CONTINUE TO OBSERVE RESPIRATORY AND CMS DEPRESSION. NOTHING ELSE MORE TO OBSERVE FOR GABAPENTIN WITHDRAWAL.
--- NOTE | 2021-10-09 17:25 | NUR ---
ALDAIR ROSENBERG AT BEDSIDE PLEASE SEE NEW ORDERS.
[2021-10-09] MEDS ORDERED: haloperidol lactate 5mg/ml inj IM ONE (17:30)
[2021-10-09] MEDS ORDERED: diphenhydrAMINE 50 mg/ml inj IV ONE (17:30)
--- NOTE | 2021-10-09 17:58 | NUR ---
PT VOIDED 250CC CLEAR YELLOW URINE VIA CONDOM CATH.
[2021-10-09 18:17] LABS: CLARITY,URINE CLEAR (Clear); COLOR,URINE YELLOW (Yellow); GLUCOSE, URINE NEGATIVE (Neg); KETONES,URINE NEGATIVE (Neg); LEUKOCYTE ESTERASE ,URINE NEGATIVE (Neg); NITRITES, URINE NEGATIVE (Neg); OCCULT BLOOD,URINE MODERATE (Neg); PH,URINE 6.5 (4.8-8.0); PROTEIN,URINE NEGATIVE (Neg); UROBILINOGEN,URINE 0.2 E.U/dL (0.2-1.0)
--- NOTE | 2021-10-09 18:21 | NUR ---
Pt placed on cd mixer, vital sign machine within line of sight of nursing station.
[2021-10-09 18:27] LABS: UA COLLECTION TYPE CONDOM CATH
[2021-10-09 18:29] LABS: URINE AMPHETAMINE SCREEN NEGATIVE (Neg); URINE BARBITUATE SCREEN NEGATIVE (Neg); URINE BENZODIAZEPINES SCREEN POSITIVE (Neg); URINE CANNABINOID SCREEN NEGATIVE (Neg); URINE COCAINE SCREEN NEGATIVE (Neg); URINE METHADONE SCREEN NEGATIVE (Neg); URINE OPIATE SCREEN NEGATIVE (Neg); URINE PHENCYCLIDINE SCREEN NEGATIVE (Neg)
[2021-10-09 18:30] LABS: BACTERIA,URINE NONE SEEN /HPF (Neg); RBC,URINE 0-2 /HPF (0-2); SQUAMOUS EPITHELIAL CELL,UR FEW /LPF (FEW); WBC,URINE 0-4 /HPF (0-4)
--- NOTE | 2021-10-09 19:32 | NUR ---
Client was sedated and sleeping when this RN assumed care. Client was in 4 point restraints. Client was transported to CT by MARIA INES Fried and . Client compliant with CT. Returned to Overflow at approximately 19:15. No long in restraints. Client up at 19:25 to use restroom. Client removed condom cath in restroom. Ambulated back to bed. Fell asleep.
--- NOTE | 2021-10-09 21:30 | NUR ---
Client has been resting. Resp even and unlabored. Numerous abrasions are noted on both hands. Clients feet and hands are soiled. HOB slightly elevated.
--- NOTE | 2021-10-09 23:40 | NUR ---
Bladimir, Pharm from poison control called to f/u on client. Chi stated concern about potential ETOH withdrawal. Client is resting. No s/s ETOH withdrawal (agitation, anxiety, tremors, changes in VS). Client overdosed on Gabapentin and has been drinking Vodka. Client resp are even and unlabored.
--- NOTE | 2021-10-10 00:56 | NUR ---
Client resting on left side. Resp even.
--- NOTE | 2021-10-10 05:00 | NUR ---
Client has been sleeping during shift, wakes to ambulate to restroom. Resp even.
[2021-10-10] MEDS ORDERED: LORazepam 1 MG tablet PO ONE ×2 (07:15→10:40)
--- NOTE | 2021-10-10 07:29 | NUR ---
Pt reports "I am withdrawing." CIWA score was 19. Received order for 2 mg of Ativan. Will reassess. Pt is calm and cooperative with EKG.
--- NOTE | 2021-10-10 07:41 | NUR ---
PACKET FAXED TO [facility]
--- NOTE | 2021-10-10 09:18 | NUR ---
Received phone call from Daryl at Poison Control. They will sign off as pt is stable. Call if status changes.
[2021-10-10] MEDS ORDERED: dextrose 50%-water 50ml dispensing syringe IV PRN ×2 (09:20)
[2021-10-10] MEDS ORDERED: dextrose ORAL solution 15 GM/59 ML bottle PO PRN ×2 (09:20)
[2021-10-10] MEDS ORDERED: insulin Lispro (HumaLOG) vial - multi-dose SQ SCH (09:20)
[2021-10-10] MEDS ORDERED: MESSAGE TO PHARMACY PO ONE (09:20)
[2021-10-10] MEDS ORDERED: glucagon, human recombinant 1mg kit SUBCUT PRN (09:20)
[2021-10-10] MEDS ORDERED: chlordiazePOXIDE 25mg capsule PO ONE ×2 (10:40→17:20)
--- NOTE | 2021-10-10 11:30 | NUR ---
Patient resting comfortably , respirations even and unlabored.
--- NOTE | 2021-10-10 12:05 | NUR ---
Received phone call from pt's father. Father was extremely upset and was talking over telegraphic typewriter mechanic and yelling. Pt's father spoke with [facility] clinician who told him pt will probably be released when stable. Pt has a history of ETOH, with each visit LEONARD over .03. Manpower Development Specialist was unable to give father some additional resource as he was yelling "You have to take care of my son!" Pt's mother was in the background yelling "You have to hold him!" Manpower Development Specialist explained to parents that if they continued to yell, the phone call would be discontinued.
--- NOTE | 2021-10-10 12:06 | NUR ---
Just spoke to pt's mother. The conversation consisted of her yelling at me on the phone talking over me so I was unable to get many words in. I explained to her that [facility] was in charge of lifting the 5150 and that once that was taken care of, he would be discharged from the hospital. She was not happy and continued to say that we could not do that because her son needed to go through detox here at the hospital. I said that we are not a detox facility, we do not do that here. He needs to check into [facility] in order to go through a detox program. Again she was not happy and said he is on a wiat list. I said if you want him in a program, then I suggest you look outside of [facility]. She said the social welfare administrator hasn't helped them get him into a place. I suggested they google facilities to help their son. She then asked to speak to Jocelyn (from [facility]) becuase her son had been to [facility] before and she had a "good raport" with Jocelyn... I explained to her that Jocelyn has nothing to do with her son's care at this point in time. After this conversation she was still unhappy with what information I had shared with her. According to [facility], the parents have enabled the pt's behavior and poor decision making, and the pt's problems are our problems to fix.
--- NOTE | 2021-10-10 14:04 | NUR ---
Pt resting comfortably after eating lunch. Pt ate 100% of his meal. Pt's last CIWA was 6.
--- NOTE | 2021-10-10 14:06 | NUR ---
[facility] at bedside. Pt cooperative and calm at this time.
--- NOTE | 2021-10-10 15:31 | NUR ---
[facility] at bedside, assisting pt for a direct referral to [facility]. Pending bed availability.
--- NOTE | 2021-10-10 15:55 | NUR ---
Pt on phone with [facility]. Pt is calm, answering questions appropriately, no diaphoresis or agitation noted.
--- NOTE | 2021-10-10 16:30 | NUR ---
Pt's 5150 is being rescinded by [facility]. Pt does not meet criteria for DTS due to a mental health d/o. Pt has a long history of ED admits for intoxication. Pt has self-sabatoged in the past by relapsing when he has been accepted to residential placement. Pt is aware of criteria change. Pharmacy Graduate Intern will have doctor assess for discharge.
--- NOTE | 2021-10-10 16:45 | NUR ---
CIWA score 5.
--- NOTE | 2021-10-10 17:18 | NUR ---
Received order for Librium [address] Carlton Olguin.
--- NOTE | 2021-10-10 17:19 | NUR ---
Updated Keyshawn Olguin MD of rescinded 5150. Per doctor okay to discharge patient. [employer] W[employer] Marker will contact pt's mother for transportation.
[2021-10-10 18:48] VITALS: BP 113/63
--- NOTE | 2021-10-10 18:53 | NUR ---
DISCHARGE NOTE: Pt was discharged from unit at 1840. Pt left with all personal belongings. Discharge instructions were reviewed with patient and pt verbalized understanding. Pt is on the waitlist for [facility].
== END 2021-10-10 18:55 | disposition home or self-care (01) ==
LOC: ER 14:30
DX: F10.129 Alcohol abuse with intoxication, unspecified (principal); R45.851 Suicidal ideations; J45.909 Unspecified asthma, uncomplicated; F41.9 Anxiety disorder, unspecified; F12.90 Cannabis use, unspecified, uncomplicated; F32.9 Major depressive disorder, single episode, unspecified; Z72.89 Other problems related to lifestyle; Z88.1 Allergy status to other antibiotic agents; Z79.899 Other long term (current) drug therapy; Y90.8 Blood alcohol level of 240 mg/100 ml or more
CPT/HCPCS: 36415; 70450; 80053; 80305; 80320; 80329; 81001; 84443; 85025; 93005; 96361; 96372; 96374; 96375; 99285; J1200; J1630; J2060; J3411; J3490; J7030; J1815

== ENCOUNTER 2021-11-01 11:26 | Emergency (ER) | payer MEDICAID ==
[~2021-11-01] VITALS: Ht 175.3 cm; Wt 77.3 kg
[~2021-11-01 11:26] MED LIST changes: -NICO-630 TOP
[2021-11-01] MEDS ORDERED: normal saline 1000ML IV soln IV ONE (11:35)
[2021-11-01 11:54] LABS: CLARITY,URINE CLEAR (Clear); COLOR,URINE YELLOW (Yellow); GLUCOSE, URINE NEGATIVE (Neg); KETONES,URINE 40 mg/dl (Neg); LEUKOCYTE ESTERASE ,URINE NEGATIVE (Neg); NITRITES, URINE NEGATIVE (Neg); OCCULT BLOOD,URINE NEGATIVE (Neg); PH,URINE 7.5 (4.8-8.0); PROTEIN,URINE NEGATIVE (Neg); UROBILINOGEN,URINE 0.2 E.U/dL (0.2-1.0)
[2021-11-01 11:58] LABS: UA COLLECTION TYPE CLN CATCH MIDSTREAM
[2021-11-01 12:09] LABS: BASOPHILS % (AUTO) 0.4 % (0-1); EOSINOPHILS % (AUTO) 0.2 % (0-6); HEMATOCRIT 43.7 % (42.0-52.0); HEMOGLOBIN 15.1 g/dl (14.0-17.9); LYMPHOCYTES # (AUTO) 1.1 X10'3 (1.1-4.8); LYMPHOCYTES % (AUTO) 15.2 % (21-51); MEAN CORPUSCULAR HEMOGLOBIN 32.6 PG (27.0-31.0); MEAN CORPUSCULAR HGB CONC 34.6 g/dL (33.0-36.5); MEAN CORPUSCULAR VOLUME 94.3 FL (78-98); MEAN PLATELET VOLUME 7.9 FL (7.4-10.4); MONOCYTES # (AUTO) 0.5 X10'3 (0-0.9); MONOCYTES % (AUTO) 6.8 % (2-12); NEUTROPHILS # (AUTO) 5.8 X10'3 (1.8-7.7); NEUTROPHILS % (AUTO) 77.4 % (42-75); PLATELET COUNT 188 X10'3 (140-440); RED BLOOD COUNT 4.63 X10'6 (4.70-6.10); RED CELL DISTRIBUTION WIDTH 12.5 % (11.5-14.5); WHITE BLOOD COUNT 7.5 X10'3 (4.5-11.0)
--- NOTE | 2021-11-01 12:12 | NUR ---
PATIENT STATES HE WOULD ATTEMPT TO KILL HIMSELF BY STEPPING IN FRONT OF A CAR BECAUSE DRINKING YOURSELF TO CLEARLY ISN'T WORKING FOR HIM.
[2021-11-01 12:26] LABS: ALANINE AMINOTRANSFERASE 41 U/L (12-78); ALBUMIN/GLOBULIN RATIO 1.4 (1.1-1.5); ALKALINE PHOSPHATASE 78 IU/L (46-116); ANION GAP 13 (8-16); ASPARTATE AMINO TRANSFERASE 34 U/L (10-37); BILIRUBIN,TOTAL 0.9 MG/DL (0.1-1.0); BLOOD UREA NITROGEN 14 MG/DL (7-18); BUN/CREATININE RATIO 17.5 (5.4-32.0); CALCIUM 8.9 MG/DL (8.5-10.1); CHLORIDE 104 MMOL/L (99-107); ETHANOL < 0.010 GM/DL (0.0-0.010); GLUCOSE 87 MG/DL (70-104); POTASSIUM 3.7 MMOL/L (3.5-5.1); SODIUM 143 MMOL/L (135-145); TOTAL CARBON DIOXIDE 26.5 MMOL/L (24-32); TOTAL PROTEIN 6.9 G/DL (6.4-8.2); eGFR > 90 ML/MIN
[2021-11-01 12:26] LABS: URINE AMPHETAMINE SCREEN NEGATIVE (Neg); URINE BARBITUATE SCREEN NEGATIVE (Neg); URINE BENZODIAZEPINES SCREEN POSITIVE (Neg); URINE CANNABINOID SCREEN NEGATIVE (Neg); URINE COCAINE SCREEN NEGATIVE (Neg); URINE METHADONE SCREEN NEGATIVE (Neg); URINE OPIATE SCREEN NEGATIVE (Neg); URINE PHENCYCLIDINE SCREEN NEGATIVE (Neg)
[2021-11-01] MEDS ORDERED: LORazepam 2 mg/ml vial IV ONE (12:40)
[2021-11-01] MEDS ORDERED: LORA-269 PO (14:32)
[2021-11-01 15:21] VITALS: BP 144/101
== END 2021-11-01 17:53 | disposition home or self-care (01) ==
LOC: ER 11:27
DX: R45.851 Suicidal ideations (principal); Z20.822 Contact with and (suspected) exposure to COVID-19; F10.239 Alcohol dependence with withdrawal, unspecified; R19.7 Diarrhea, unspecified; F32.9 Major depressive disorder, single episode, unspecified; R10.30 Lower abdominal pain, unspecified; R11.0 Nausea; J45.909 Unspecified asthma, uncomplicated; F41.9 Anxiety disorder, unspecified; F12.90 Cannabis use, unspecified, uncomplicated; Z72.89 Other problems related to lifestyle; Z88.1 Allergy status to other antibiotic agents; Z79.899 Other long term (current) drug therapy; Y90.5 Blood alcohol level of 100-119 mg/100 ml
CPT/HCPCS: 36415; 80053; 80305; 80320; 81003; 85025; 87635; 93005; 99285; C9803; J2060; J7030

== ENCOUNTER 2021-12-17 19:05 | Emergency (ER) | payer MEDICAID ==
[~2021-12-17] VITALS: Ht 175.3 cm; Wt 75.3 kg
[~2021-12-17 19:05] MED LIST changes: +LORA-269 PO
[2021-12-17 19:24] VITALS: BP 125/88
[2021-12-17] MEDS ORDERED: ONDA8TAB13 PO (19:42)
[2021-12-17] MEDS ORDERED: GABA-534 PO (19:42)
[2021-12-17] MEDS ORDERED: QUET-1 PO (20:16)
== END 2021-12-17 20:18 | disposition home or self-care (01) ==
LOC: ER 19:09
DX: F10.229 Alcohol dependence with intoxication, unspecified (principal); J45.909 Unspecified asthma, uncomplicated; F41.9 Anxiety disorder, unspecified; F32.9 Major depressive disorder, single episode, unspecified; F12.90 Cannabis use, unspecified, uncomplicated; Z72.89 Other problems related to lifestyle; Z88.1 Allergy status to other antibiotic agents; Z79.899 Other long term (current) drug therapy; Y90.9 Presence of alcohol in blood, level not specified
CPT/HCPCS: 99283

== ENCOUNTER 2022-04-16 18:10 | Emergency (ER) | payer MEDICAID ==
[~2022-04-16] VITALS: Ht 175.3 cm; Wt 79.5 kg
[~2022-04-16 18:10] MED LIST changes: +GABA-534 PO; +ONDA8TAB13 PO
[2022-04-16] MEDS ORDERED: diphenhydrAMINE 50 mg/ml inj IV ONE (19:35)
[2022-04-16] MEDS ORDERED: LORazepam 2 mg/ml vial IV ONE (19:35)
[2022-04-16] MEDS ORDERED: normal saline 1000ml 1,000 ML IV ONE (19:35)
[2022-04-16 20:00] LABS: BASOPHILS % (AUTO) 0.8 % (0-1); EOSINOPHILS % (AUTO) 0.4 % (0-6); HEMATOCRIT 46.6 % (42.0-52.0); HEMOGLOBIN 16.1 g/dl (14.0-17.9); LYMPHOCYTES # (AUTO) 1.2 X10'3 (1.1-4.8); LYMPHOCYTES % (AUTO) 18.2 % (21-51); MEAN CORPUSCULAR HEMOGLOBIN 31.6 PG (27.0-31.0); MEAN CORPUSCULAR HGB CONC 34.5 g/dL (33.0-36.5); MEAN CORPUSCULAR VOLUME 91.5 FL (78-98); MEAN PLATELET VOLUME 7.6 FL (7.4-10.4); MONOCYTES # (AUTO) 0.9 X10'3 (0-0.9); MONOCYTES % (AUTO) 14.6 % (2-12); NEUTROPHILS # (AUTO) 4.3 X10'3 (1.8-7.7); PLATELET COUNT 106 X10'3 (140-440); RED CELL DISTRIBUTION WIDTH 14.1 % (11.5-14.5); WHITE BLOOD COUNT 6.4 X10'3 (4.5-11.0)
[2022-04-16 20:17] LABS: ALANINE AMINOTRANSFERASE 89 U/L (12-78); ALBUMIN 3.8 G/DL (3.4-5.0); ALKALINE PHOSPHATASE 117 IU/L (46-116); ANION GAP 11 (8-16); ASPARTATE AMINO TRANSFERASE 123 U/L (10-37); BILIRUBIN,TOTAL 0.5 MG/DL (0.1-1.0); BLOOD UREA NITROGEN 5 MG/DL (7-18); BUN/CREATININE RATIO 7.1 (5.4-32.0); CALCIUM 8.1 MG/DL (8.5-10.1); CHLORIDE 96 MMOL/L (99-107); GLUCOSE 129 MG/DL (70-104); POTASSIUM 3.6 MMOL/L (3.5-5.1); SODIUM 135 MMOL/L (135-145); TOTAL CARBON DIOXIDE 28.5 MMOL/L (24-32); TOTAL PROTEIN 7.5 G/DL (6.4-8.2); eGFR > 90 ML/MIN
--- NOTE | 2022-04-16 20:29 | NUR ---
pt resting with eyes closed and sounds of snoring.
[2022-04-16] MEDS ORDERED: GABA300C PO (20:30)
--- NOTE | 2022-04-16 20:37 | NUR ---
warehouse representative note: Attempted to call mother for ride, straight to voicemail, message left
[2022-04-16] MEDS ORDERED: gabapentin 300mg capsule PO ONE (20:40)
--- NOTE | 2022-04-16 20:47 | NUR ---
learning and development specialist note: Attempted to call mother for ride, straight to voicemail
[2022-04-16 21:25] VITALS: BP 123/94
== END 2022-04-16 21:56 | disposition home or self-care (01) ==
LOC: ER 18:11
DX: F10.129 Alcohol abuse with intoxication, unspecified (principal); J45.909 Unspecified asthma, uncomplicated; F41.9 Anxiety disorder, unspecified; F32.A Depression, unspecified; Z88.1 Allergy status to other antibiotic agents; Y90.9 Presence of alcohol in blood, level not specified
CPT/HCPCS: 36415; 80053; 80320; 85025; 93005; 96361; 96374; 96375; 99285; J1200; J2060; J7030

== ENCOUNTER 2022-10-24 16:15 | Emergency (ER) | payer MEDICAID ==
[~2022-10-24] VITALS: Ht 175.3 cm; Wt 79.5 kg
[~2022-10-24 16:15] MED LIST changes: +GABA300C PO
[2022-10-24] MEDS ORDERED: CHLO25CA10 PO (22:05)
[2022-10-24] MEDS ORDERED: PROC-8 PO (22:08)
[2022-10-24 22:41] VITALS: BP 133/97
== END 2022-10-24 22:42 | disposition home or self-care (01) ==
LOC: ER 16:17
DX: F10.29 Alcohol dependence with unspecified alcohol-induced disorder (principal); I10 Essential (primary) hypertension; J45.909 Unspecified asthma, uncomplicated; F31.9 Bipolar disorder, unspecified; K21.9 Gastro-esophageal reflux disease without esophagitis; F17.200 Nicotine dependence, unspecified, uncomplicated; F12.10 Cannabis abuse, uncomplicated; F15.10 Other stimulant abuse, uncomplicated; Z88.1 Allergy status to other antibiotic agents; Z79.899 Other long term (current) drug therapy
CPT/HCPCS: 99284; J7030

== ENCOUNTER 2023-06-29 20:41 | Emergency (ER) | payer MEDICAID ==
[~2023-06-29] VITALS: Ht 175.3 cm; Wt 72.7 kg
[~2023-06-29 20:41] MED LIST changes: +CHLO25CA10 PO; -GABA-534 PO; +GABA-535 PO; +PROC-8 PO
[2023-06-29 21:22] VITALS: BP 135/98; PULSE 114; RESP 16; TEMP 98.9; O2SAT 96
== END 2023-06-30 02:21 | disposition left against medical advice (07) ==
LOC: ER 20:42
DX: M79.89 Other specified soft tissue disorders (principal); Z53.21 Procedure and treatment not carried out due to patient leaving prior to being seen by health care provider
CPT/HCPCS: 99281

== ENCOUNTER 2023-07-27 22:07 | Emergency (ER) | payer SELFPAY ==
[~2023-07-27] VITALS: Ht 175.3 cm; Wt 77.3 kg
[2023-07-27 22:12] VITALS: BP 129/97; PULSE 110; RESP 16; TEMP 98.2; O2SAT 97
== END 2023-07-28 03:17 ==
LOC: ER 22:07
DX: F10.129 Alcohol abuse with intoxication, unspecified (principal); I10 Essential (primary) hypertension; J45.909 Unspecified asthma, uncomplicated; K21.9 Gastro-esophageal reflux disease without esophagitis; F12.90 Cannabis use, unspecified, uncomplicated; F15.90 Other stimulant use, unspecified, uncomplicated; Z88.1 Allergy status to other antibiotic agents; Z79.899 Other long term (current) drug therapy; Y90.9 Presence of alcohol in blood, level not specified
CPT/HCPCS: 99283